=== PATIENT | male | born 1940 | race Caucasian/White ===

== ENCOUNTER 2020-12-06 13:56 | Inpatient (IN) ==
[2020-12-06] MEDS ORDERED: ALBUT/IPRATROP 3MG/0.5MG NEB 3 ML VIAL NEB STA (14:10)
[2020-12-06] MEDS ORDERED: ONDANSETRON INJ 2 MG/ML 2 ML VIAL IV STA ×3 (14:10→17:28)
[2020-12-06] MEDS ORDERED: SODIUM CHLORIDE 0.9% 1000ML 500 ML IV ONE ×3 (14:10→15:09)
[2020-12-06] MEDS ORDERED: PIPERACILLIN/TAZOBACTAM 4.5 GM/120 ML BAG IV ONE (14:11)
[2020-12-06] MEDS ORDERED: PIPERACILL/TAZOBAC CONSULT ACTIVE PRN (14:11)
[2020-12-06] MEDS ORDERED: ONDANSETRON INJ 2 MG/ML 2 ML VIAL ONE (14:12)
--- NOTE | 2020-12-06 14:17 | Emergency Department Note ---
Impression & Plan Altered mental status, Elevated lactic acid level, Vomiting, Aspiration into airway, Leukocytosis ED Provider Note NAME: LINDA CASTRO AGE: 80 SEX: M : 1940 ARRIVES VIA: Ambulance INFORMANT: [Patient][ems, nurse] ED PROVIDER(S): [Bear Monroy MD] CHIEF COMPLAINT: Altered LOC HISTORY OF PRESENT ILLNESS: The patient is a 80-year-old male who presents by EMS from the [facility] dermatology clinic. He was having a Mohs procedure on his face and left hand. Apparently, in the middle of the procedure, he vomited and there was concern for aspiration. Since this event, he has had an altered level of consciousness, some difficulty breathing and seems to be uncomfortable. His personal nurse is at the bedside stating the patient is a DNR. He is not to have a feeding tube, intubation or CPR. He does want antibiotics and fluids though if it can help. No further history is obtainable as the patient is in no condition to provide any history. Of note, EMS reports an adequate blood sugar. REVIEW OF SYSTEMS: Unobtainable given the mental state PMHx/PSHx: See Below SOCIAL HISTORY: See Below. PHYSICAL EXAM: GENERAL: Patient is in moderate distress HEENT: There is a large fresh bandage on the right side of the face. The patient's pupils are equal and reactive to light. Mucous members appear moist. NECK: No stridor, no adenopathy, no meningismus, trachea is midline. LUNGS: There is an increased respiratory rate and diminished breath sounds. Wheezes are heard bilaterally. He has some mild to moderate respiratory distress. HEART: Regular rate and rhythm, no obvious murmur. ABDOMEN: Soft, mildly diffusely tender and somewhat distended, bowel sounds positive, no peritonitis. EXTREMITIES: No cyanosis. 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 The left lower extremity is moderately edematous. NEUROLOGIC: Awakes to the sound of his name or tactile stimulation. Definitely somnolent. Confused. At times moans during the evaluation. SKIN: No rash, no jaundice, no diaphoresis. DIFFERENTIAL DIAGNOSIS: Infection, dehydration, metabolic abnormality, hypo/hyperglycemia, aspiration, sepsis or bacteremia, COVID-19, electrolyte disturbance, anemia, hypoxia, cardiac sources, intracerebral event, toxicologic issues, stroke, TIA, as well as other pathologies. EMERGENCY DEPARTMENT COURSE/PROCEDURES: ECG: Indication was altered mental state. The ECG shows an atrial pacemaker with a prolonged AV conduction. PVCs are present. The rate is 62. There are T wave inversions in the inferior and lateral leads. No worrisome ST elevation. The QTc is 452. Compared to an ECG from 22 January 2011, an atrial pacemaker is now present. The T wave changes are now present. Continuous Cardiac Monitoring: An order was placed for continuous cardiac monitoring. The monitor shows a rate of 74 with an atrial pacemaker. Critical Care Note: I have personally spent 56 minutes of critical care time in the direct management of this patient. This includes bedside care, interpretation of diagnostic studies, and testing, discussion with consultants, patient, and family members, and other required patient management activities. This 56 minutes is in excess of all separately billable procedures. MEDICAL DECISION MAKING: There is a significant leukocytosis at 29,000. This is consistent with infection. Hemoglobin was low however, the patient carries a history of anemia. There was a normal platelet count. No coagulopathy. Renal panel testing does show some acute kidney injury with a creatinine of 1.82. Glucose was high in the 300s. Lactic acid level was elevated at over 4. No liver enzyme elevation. ECG showed an atrial pacemaker, there were some inverted T waves seen in the inferior and lateral leads. No ST elevation. Cardiac enzyme testing x1 is not consistent with acute cardiac injury. Urinalysis did not show any obvious infection. Covid testing returned negative. Chest x-ray did not show pneumonia or CHF. Brain CT showed no acute bleed or mass-effect. A potential subacute infarct was queried. Abdominal and pelvis CT did not show any acute surgical process. There was no bowel obstruction. On exam, the patient was confused, he was wheezing. At times he was hypotensive. He required O2 supplementation to maintain an adequate oxygen level. The patient is a DNR. He is not to be intubated or have a feeding tube or undergo CPR. IV medications were acceptable. The patient had 2 IVs placed. He received 30 cc/kg of IV saline for potential sepsis. He was given IV Zosyn as antibiotic coverage. The patient received several doses of IV Zofran for nausea. He was given IV Ativan for nausea. He received IV Phenergan for nausea. He was given a DuoNeb. At 1 point, a norepinephrine drip was ordered however, this was canceled as his blood pressure seems a rebound with just the IV fluids. Patient did have an NG tube placed to try to offset his nausea and vomiting however, this did not help and as there was no bowel obstruction on CT, the NG tube was removed. The patient is doing poorly. I did talk to the form worker who was performing his Mohs procedure. A significant amount of lidocaine was used but, the patient did not have any reported seizure activity. In the middle of his procedure he suddenly seemed to be less awake and then began vomiting. In short, the patient may not survive this hospitalization. He is quite ill. I did attempt to contact family but no one was listed as a contact in his record. Nursing staff was able to confirm his DNR status. I did speak with case management, the on-call hospitalist was consulted. Past Med/Surg History Medical History Diabetes mellitus Social History Smoking Status: Unknown if ever smoked Preferred Language: Yemeni Communication Ability: Unable Communication Ability Comment: pt is confused and unable to provide history Senior Administrative Assistant Required: No Beliefs That Will Affect Care: None Current Living Situation: Other Current Living Situation Comment: unknown-pt confused unable to obtain information Feels Safe at Home: Yes Assistive Devices: Wheelchair Allergies Allergies Allergy/AdvReac Type Severity Reaction Status Date / Time No Known Allergies Allergy Mild Verified 12/06/20 14:34 Home Meds Home Medications Medication Instructions Recorded Confirmed loratadine 10 mg tablet 10 mg PO DAILY 12/15/19 12/06/20 methenamine hippurate 1 gram tablet 1 g PO BID 12/15/19 12/06/20 mirtazapine 7.5 mg tablet 7.5 mg HS 12/15/19 12/06/20 rivaroxaban 15 mg tablet (Xarelto) 15 mg PO PM 12/15/19 12/06/20 tamsulosin 0.4 mg capsule 0.4 mg PO BID 12/15/19 12/06/20 acetaminophen 325 mg tablet 650 mg PO Q6 PRN MDD 3g 12/06/20 12/06/20 amlodipine 10 mg tablet 10 mg PO DAILY 12/06/20 12/06/20 aspirin 81 mg chewable tablet 81 mg PO DAILY 12/06/20 12/06/20 cholecalciferol (vitamin D3) 25 50 mcg PO DAILY 12/06/20 12/06/20 mcg (1,000 unit) tablet (Vitamin D3) docusate sodium 100 mg capsule 200 mg PO BID 12/06/20 12/06/20 (Colace) finasteride 5 mg tablet 5 mg PO DAILY 12/06/20 12/06/20 gabapentin 100 mg capsule 100 mg PO TID 12/06/20 12/06/20 insulin glargine 100 unit/mL (3 58 unit SUBCUT HS 12/06/20 12/06/20 mL) subcutaneous pen (Basaglar KwikPen U-100 Insulin) lisinopril 5 mg tablet 5 mg PO DAILY 12/06/20 12/06/20 omeprazole 40 mg capsule,delayed 40 mg PO BID 12/06/20 12/06/20 release polyethylene glycol 3350 17 17 g PO Q OTHER DAY 12/06/20 12/06/20 gram/dose oral powder (ClearLax) sennosides 8.6 mg tablet (Senokot) 17.2 mg PO BID 12/06/20 12/06/20 simvastatin 20 mg tablet 20 mg PO HS 12/06/20 12/06/20 Results & Data (ED) Vital Signs Vital Signs - 24 hr 12/06/20 13:45 12/06/20 14:06 12/06/20 14:18 Temperature 36.6 C Temperature Source Oral Pulse Rate 64 63 Pulse Rate [Apical] 65 Pulse Rate from SpO2 Sensor 61 Pulse Rhythm Regular Pulse Rhythm [Apical] Regular Pulse Strength [Apical] Respiratory Rate 26 H 22 28 H Respiratory Effort / Characteristics Labored Moaning Short of Breath Moaning SOB on Exertion Respiratory Depth Respiratory Pattern Irregular Tachypnea Blood Pressure 108/46 L 100/50 L Blood Pressure [Right Arm] 121/55 L Blood Pressure Mean 66 66 Blood Pressure Mean [Right Arm] 77 Blood Pressure Position Sitting Blood Pressure Position [Right Arm] Sitting Pulse Oximetry 100 88 L 97 Oxygen Delivery Method Nasal Cannula Room Air Nasal Cannula Oxygen Flow Rate 5 4 Sepsis Recent Fever Within 48 Hours No Sepsis New/Unexplained Change in Mental Status No Sepsis Action Taken by Nursing No Action Required 12/06/20 14:47 12/06/20 15:03 12/06/20 15:15 Temperature Temperature Source Pulse Rate 62 66 Pulse Rate [Apical] Pulse Rate from SpO2 Sensor 62 66 Pulse Rhythm Pulse Rhythm [Apical] Pulse Strength [Apical] Respiratory Rate 20 16 16 Respiratory Effort / Characteristics Spontaneous Respiratory Depth Respiratory Pattern Blood Pressure 108/46 L 102/48 L Blood Pressure [Right Arm] Blood Pressure Mean 66 66 Blood Pressure Mean [Right Arm] Blood Pressure Position Blood Pressure Position [Right Arm] Pulse Oximetry 92 100 100 Oxygen Delivery Method Nasal Cannula Nasal Cannula Oxygen Flow Rate 6 3 Sepsis Recent Fever Within 48 Hours Sepsis New/Unexplained Change in Mental Status Sepsis Action Taken by Nursing 12/06/20 15:31 12/06/20 15:42 12/06/20 16:00 Temperature Temperature Source Pulse Rate 62 65 64 Pulse Rate [Apical] Pulse Rate from SpO2 Sensor 62 66 63 Pulse Rhythm Pulse Rhythm [Apical] Pulse Strength [Apical] Respiratory Rate 20 14 29 H Respiratory Effort / Characteristics Respiratory Depth Respiratory Pattern Blood Pressure 77/53 L 120/48 L 115/49 L Blood Pressure [Right Arm] Blood Pressure Mean 61 72 71 Blood Pressure Mean [Right Arm] Blood Pressure Position Blood Pressure Position [Right Arm] Pulse Oximetry 97 99 95 Oxygen Delivery Method Oxygen Flow Rate Sepsis Recent Fever Within 48 Hours Sepsis New/Unexplained Change in Mental Status Sepsis Action Taken by Nursing 12/06/20 16:11 12/06/20 16:18 Temperature Temperature Source Pulse Rate 60 Pulse Rate [Apical] 62 Pulse Rate from SpO2 Sensor 60 Pulse Rhythm Pulse Rhythm [Apical] Regular Pulse Strength [Apical] Weak Respiratory Rate 32 H 28 H Respiratory Effort / Characteristics Moaning Short of Breath Respiratory Depth Shallow Respiratory Pattern Blood Pressure 111/49 L Blood Pressure [Right Arm] 100/52 L Blood Pressure Mean 69 Blood Pressure Mean [Right Arm] 68 Blood Pressure Position Blood Pressure Position [Right Arm] Sitting Pulse Oximetry 93 100 Oxygen Delivery Method Nasal Cannula Oxygen Flow Rate Sepsis Recent Fever Within 48 Hours Sepsis New/Unexplained Change in Mental Status Sepsis Action Taken by Alf Medications Current Medication List: was personally reviewed by me Laboratory Data Attestation: I reviewed the patient's lab results. Result diagrams: 12/06/20 14:24 12/06/20 14:24 Lab Results 12/06/20 12/06/20 12/06/20 Range/Units 14:24 14:24 14:24 WBC 29.91 H (4.8-10.8) K/uL RBC 3.64 L (4.7-6.1) M/uL Hgb 9.9 L (14.0-18.0) g/dL Hct 29.9 L (42-52) % MCV 82.1 (80-100) fL MCH 27.2 (25-34) pg MCHC 33.1 (32-36) g/dL RDW Std Deviation 43.8 (36.4-46.3) fL RDW Coeff of Elizabeth 14.5 (11.5-14.5) % Plt Count 278 (130-400) K/uL MPV 9.3 (7.4-10.4) fL Immature Gran % (Auto) 1.6 % Neut % (Auto) 86.3 % Lymph % (Auto) 6.8 % [place] % (Auto) 4.4 % Eos % (Auto) 0.8 % Baso % (Auto) 0.1 % Neut # (Auto) 25.80 H (1.4-6.5) K/uL Lymph # (Auto) 2.03 (1.2-3.4) K/uL [place] # (Auto) 1.31 H (0.11-0.59) K/uL Eos # (Auto) 0.24 (0-0.5) K/uL Baso # (Auto) 0.04 (0-0.2) K/uL Immature Gran # (Auto) 0.49 H (0.00-0.02) K/uL PT 11.4 (9.0-12.0) Seconds INR 1.1 (0.9-1.1) APTT 24.8 (21.0-31.0) Seconds PTT Ratio 0.9 Sodium 138 (136-145) mmol/L Potassium 4.8 (3.5-5.1) mmol/L Chloride 108 H (98-107) mmol/L Carbon Dioxide 21 (21-32) mmol/L Anion Gap 9.0 (3-11) BUN 33 H (7-18) mg/dl Creatinine 1.82 H (0.6-1.4) mg/dl Est Cr Clr Drug Dosing Not Reportable Est GFR ( Amer) 40.3 ml/min Est GFR (Non-Af Amer) 34.8 ml/min BUN/Creatinine Ratio 18.1 (10-20) Glucose 347 H* (70-99) mg/dl POC Glucose (70-99) mg/dl Lactate (0.4-2.0) mmol/L Calcium 8.4 L (8.5-10.1) mg/dl Magnesium 1.8 (1.8-2.4) mg/dl Total Bilirubin 0.4 (0.2-1) mg/dl AST 20 (15-37) U/L ALT 30 (12-78) U/L Alkaline Phosphatase 94 (45-117) U/L Troponin I < 0.015 (0-0.045) ng/ml Total Protein 6.6 (6.4-8.2) gm/dl Albumin 2.8 L (3.4-5.0) gm/dl Globulin 3.8 (2.5-4.0) gm/dl Albumin/Globulin Ratio 0.7 L (0.9-2) Beta-Hydroxybutyric Acd 1.13 (0.2-2.81) mg/dl Procalcitonin (0-0.5) ng/ml TSH 6.350 H (0.300-4.500) uIu/ml Free T4 1.14 (0.8-1.6) ng/dl Random Cortisol mcg/dl Urine Color Urine Appearance (Clear) Urine pH (4.5-7.5) Ur Specific [place] (1.000-1.030) Urine Protein (Negative) Urine Glucose (UA) (Negative) Urine Ketones (Negative) Urine Blood (Negative) Urine Nitrite (Negative) Urine Bilirubin (Negative) Urine Urobilinogen (Negative) Ur Leukocyte Esterase (Negative) Urine WBC (Auto) (0-5) /hpf Urine RBC (Auto) (0-4) /hpf U Hyaline Cast (Auto) (0-5) /lpf U Epithel Cells (Auto) (0-5) /lpf Urine Bacteria (Auto) (Negative) COVID-19 Eval Order SARS-CoV-2 (PCR) (Negative) 12/06/20 12/06/20 12/06/20 Range/Units 14:24 14:27 14:27 WBC (4.8-10.8) K/uL RBC (4.7-6.1) M/uL Hgb (14.0-18.0) g/dL Hct (42-52) % MCV (80-100) fL MCH (25-34) pg MCHC (32-36) g/dL RDW Std Deviation (36.4-46.3) fL RDW Coeff of Elizabeth (11.5-14.5) % Plt Count (130-400) K/uL MPV (7.4-10.4) fL Immature Gran % (Auto) % Neut % (Auto) % Lymph % (Auto) % [place] % (Auto) % Eos % (Auto) % Baso % (Auto) % Neut # (Auto) (1.4-6.5) K/uL Lymph # (Auto) (1.2-3.4) K/uL [place] # (Auto) (0.11-0.59) K/uL Eos # (Auto) (0-0.5) K/uL Baso # (Auto) (0-0.2) K/uL Immature Gran # (Auto) (0.00-0.02) K/uL PT (9.0-12.0) Seconds INR (0.9-1.1) APTT (21.0-31.0) Seconds PTT Ratio Sodium (136-145) mmol/L Potassium (3.5-5.1) mmol/L Chloride (98-107) mmol/L Carbon Dioxide (21-32) mmol/L Anion Gap (3-11) BUN (7-18) mg/dl Creatinine (0.6-1.4) mg/dl Est Cr Clr Drug Dosing Est GFR ( Amer) ml/min Est GFR (Non-Af Amer) ml/min BUN/Creatinine Ratio (10-20) Glucose (70-99) mg/dl POC Glucose (70-99) mg/dl Lactate 4.9 H* (0.4-2.0) mmol/L Calcium (8.5-10.1) mg/dl Magnesium (1.8-2.4) mg/dl Total Bilirubin (0.2-1) mg/dl AST (15-37) U/L ALT (12-78) U/L Alkaline Phosphatase (45-117) U/L Troponin I (0-0.045) ng/ml Total Protein (6.4-8.2) gm/dl Albumin (3.4-5.0) gm/dl Globulin (2.5-4.0) gm/dl Albumin/Globulin Ratio (0.9-2) Beta-Hydroxybutyric Acd (0.2-2.81) mg/dl Procalcitonin < 0.05 (0-0.5) ng/ml TSH (0.300-4.500) uIu/ml Free T4 (0.8-1.6) ng/dl Random Cortisol 30.50 mcg/dl Urine Color Urine Appearance (Clear) Urine pH (4.5-7.5) Ur Specific [place] (1.000-1.030) Urine Protein (Negative) Urine Glucose (UA) (Negative) Urine Ketones (Negative) Urine Blood (Negative) Urine Nitrite (Negative) Urine Bilirubin (Negative) Urine Urobilinogen (Negative) Ur Leukocyte Esterase (Negative) Urine WBC (Auto) (0-5) /hpf Urine RBC (Auto) (0-4) /hpf U Hyaline Cast (Auto) (0-5) /lpf U Epithel Cells (Auto) (0-5) /lpf Urine Bacteria (Auto) (Negative) COVID-19 Eval Order SARS-CoV-2 (PCR) (Negative) 12/06/20 12/06/20 12/06/20 Range/Units 14:28 14:28 14:32 WBC (4.8-10.8) K/uL RBC (4.7-6.1) M/uL Hgb (14.0-18.0) g/dL Hct (42-52) % MCV (80-100) fL MCH (25-34) pg MCHC (32-36) g/dL RDW Std Deviation (36.4-46.3) fL RDW Coeff of Elizabeth (11.5-14.5) % Plt Count (130-400) K/uL MPV (7.4-10.4) fL Immature Gran % (Auto) % Neut % (Auto) % Lymph % (Auto) % [place] % (Auto) % Eos % (Auto) % Baso % (Auto) % Neut # (Auto) (1.4-6.5) K/uL Lymph # (Auto) (1.2-3.4) K/uL [place] # (Auto) (0.11-0.59) K/uL Eos # (Auto) (0-0.5) K/uL Baso # (Auto) (0-0.2) K/uL Immature Gran # (Auto) (0.00-0.02) K/uL PT (9.0-12.0) Seconds INR (0.9-1.1) APTT (21.0-31.0) Seconds PTT Ratio Sodium (136-145) mmol/L Potassium (3.5-5.1) mmol/L Chloride (98-107) mmol/L Carbon Dioxide (21-32) mmol/L Anion Gap (3-11) BUN (7-18) mg/dl Creatinine (0.6-1.4) mg/dl Est Cr Clr Drug Dosing Est GFR ( Amer) ml/min Est GFR (Non-Af Amer) ml/min BUN/Creatinine Ratio (10-20) Glucose (70-99) mg/dl POC Glucose 354 H* (70-99) mg/dl Lactate (0.4-2.0) mmol/L Calcium (8.5-10.1) mg/dl Magnesium (1.8-2.4) mg/dl Total Bilirubin (0.2-1) mg/dl AST (15-37) U/L ALT (12-78) U/L Alkaline Phosphatase (45-117) U/L Troponin I (0-0.045) ng/ml Total Protein (6.4-8.2) gm/dl Albumin (3.4-5.0) gm/dl Globulin (2.5-4.0) gm/dl Albumin/Globulin Ratio (0.9-2) Beta-Hydroxybutyric Acd (0.2-2.81) mg/dl Procalcitonin (0-0.5) ng/ml TSH (0.300-4.500) uIu/ml Free T4 (0.8-1.6) ng/dl Random Cortisol mcg/dl Urine Color Urine Appearance (Clear) Urine pH (4.5-7.5) Ur Specific [place] (1.000-1.030) Urine Protein (Negative) Urine Glucose (UA) (Negative) Urine Ketones (Negative) Urine Blood (Negative) Urine Nitrite (Negative) Urine Bilirubin (Negative) Urine Urobilinogen (Negative) Ur Leukocyte Esterase (Negative) Urine WBC (Auto) (0-5) /hpf Urine RBC (Auto) (0-4) /hpf U Hyaline Cast (Auto) (0-5) /lpf U Epithel Cells (Auto) (0-5) /lpf Urine Bacteria (Auto) (Negative) COVID-19 Eval Order Covid19 at [facility] SARS-CoV-2 (PCR) NEGATIVE (Negative) 12/06/20 12/06/20 Range/Units 15:13 17:41 WBC (4.8-10.8) K/uL RBC (4.7-6.1) M/uL Hgb (14.0-18.0) g/dL Hct (42-52) % MCV (80-100) fL MCH (25-34) pg MCHC (32-36) g/dL RDW Std Deviation (36.4-46.3) fL RDW Coeff of Elizabeth (11.5-14.5) % Plt Count (130-400) K/uL MPV (7.4-10.4) fL Immature Gran % (Auto) % Neut % (Auto) % Lymph % (Auto) % [place] % (Auto) % Eos % (Auto) % Baso % (Auto) % Neut # (Auto) (1.4-6.5) K/uL Lymph # (Auto) (1.2-3.4) K/uL [place] # (Auto) (0.11-0.59) K/uL Eos # (Auto) (0-0.5) K/uL Baso # (Auto) (0-0.2) K/uL Immature Gran # (Auto) (0.00-0.02) K/uL PT (9.0-12.0) Seconds INR (0.9-1.1) APTT (21.0-31.0) Seconds PTT Ratio Sodium (136-145) mmol/L Potassium (3.5-5.1) mmol/L Chloride (98-107) mmol/L Carbon Dioxide (21-32) mmol/L Anion Gap (3-11) BUN (7-18) mg/dl Creatinine (0.6-1.4) mg/dl Est Cr Clr Drug Dosing Est GFR ( Amer) ml/min Est GFR (Non-Af Amer) ml/min BUN/Creatinine Ratio (10-20) Glucose (70-99) mg/dl POC Glucose 324 H* (70-99) mg/dl Lactate (0.4-2.0) mmol/L Calcium (8.5-10.1) mg/dl Magnesium (1.8-2.4) mg/dl Total Bilirubin (0.2-1) mg/dl AST (15-37) U/L ALT (12-78) U/L Alkaline Phosphatase (45-117) U/L Troponin I (0-0.045) ng/ml Total Protein (6.4-8.2) gm/dl Albumin (3.4-5.0) gm/dl Globulin (2.5-4.0) gm/dl Albumin/Globulin Ratio (0.9-2) Beta-Hydroxybutyric Acd (0.2-2.81) mg/dl Procalcitonin (0-0.5) ng/ml TSH (0.300-4.500) uIu/ml Free T4 (0.8-1.6) ng/dl Random Cortisol mcg/dl Urine Color Yellow Urine Appearance Clear (Clear) Urine pH 6.5 (4.5-7.5) Ur Specific [place] 1.017 (1.000-1.030) Urine Protein Negative (Negative) Urine Glucose (UA) 2+ H (Negative) Urine Ketones Negative (Negative) Urine Blood Trace H (Negative) Urine Nitrite Negative (Negative) Urine Bilirubin Negative (Negative) Urine Urobilinogen Negative (Negative) Ur Leukocyte Esterase 1+ H (Negative) Urine WBC (Auto) 10-30 H (0-5) /hpf Urine RBC (Auto) 0-4 (0-4) /hpf U Hyaline Cast (Auto) 1-5 (0-5) /lpf U Epithel Cells (Auto) >30 H (0-5) /lpf Urine Bacteria (Auto) Negative (Negative) COVID-19 Eval Order SARS-CoV-2 (PCR) (Negative) Administered Medications Sodium Chloride (Nss 1000ml) 1,000 mls @ 100 mls/hr IV .Q10H JOSE ARMANDO Stop: 01/05/21 18:14 Last Admin: 12/06/20 21:04 Dose: 100 mls/hr Documented by: [id number] Sodium Chloride (Nss 1000ml) 1,000 mls @ 999 mls/hr IV .Q1H1M ONE Stop: 12/06/20 21:45 Last Admin: 12/06/20 21:03 Dose: 999 mls/hr Documented by: [id number] Discontinued Medications Albuterol (Albut/Ipratrop 3mg/0.5mg Neb 3 Ml Vial) 3 ml NEB NOW STA Stop: 12/06/20 14:11 Last Admin: 12/06/20 14:33 Dose: 3 ml Documented by: [id number] Sodium Chloride (Nss 1000ml) 500 mls @ 999 mls/hr IV .Q31M ONE Stop: 12/06/20 14:40 Last Infusion: 12/06/20 15:15 Dose: 0 mls/hr Documented by: [id number] Infusion: 12/06/20 15:14 Dose: 0 mls/hr Documented by: [id number] Admin: 12/06/20 14:19 Dose: 999 mls/hr Documented by: [id number] Piperacillin Sod/Tazobactam Sod (Zosyn) 4.5 gm in 120 mls @ 240 mls/hr IV NOW ONE Stop: 12/06/20 14:40 Last Infusion: 12/06/20 15:15 Dose: 0 mls/hr Documented by: [id number] Infusion: 12/06/20 15:00 Dose: 0 mls/hr Documented by: [id number] Admin: 12/06/20 14:37 Dose: 240 mls/hr Documented by: [id number] Sodium Chloride (Nss 1000ml) 500 mls @ 999 mls/hr IV .Q31M ONE Stop: 12/06/20 14:56 Last Infusion: 12/06/20 15:29 Dose: 0 mls/hr Documented by: [id number] Admin: 12/06/20 15:24 Dose: 999 mls/hr Documented by: [id number] Sodium Chloride (Nss 1000ml) 1,000 mls @ 999 mls/hr IV .Q1H1M ONE Stop: 12/06/20 16:06 Last Infusion: 12/06/20 15:15 Dose: 0 mls/hr Documented by: [id number] Admin: 12/06/20 15:14 Dose: 999 mls/hr Documented by: [id number] Sodium Chloride (Nss 1000ml) 500 mls @ 999 mls/hr IV .Q31M ONE Stop: 12/06/20 15:39 Last Infusion: 12/06/20 15:14 Dose: 0 mls/hr Documented by: [id number] Admin: 12/06/20 15:00 Dose: 999 mls/hr Documented by: [id number] Sodium Chloride (Nss) 250 mls @ 999 mls/hr IV .Q16M ONE Stop: 12/06/20 15:24 Last Infusion: 12/06/20 15:55 Dose: 0 mls/hr Documented by: [id number] Admin: 12/06/20 15:29 Dose: 999 mls/hr Documented by: [id number] Lorazepam (Ativan) 0.5 mg in 1 mls @ 1 mls/min IV NOW STA Stop: 12/06/20 15:16 Last Admin: 12/06/20 15:22 Dose: 1 mls/min Documented by: [id number] Norepinephrine Bitartrate (Levophed/D5w) 8 mg in 508 mls @ 32.309 mls/hr IV .[id number] [facility]; Protocol Stop: 01/05/21 15:44 Last Admin: 12/06/20 20:39 Dose: Not Given Documented by: [id number] Promethazine HCl (Phenergan) 6.25 mg in 50.25 mls @ 201 mls/hr IV NOW STA Stop: 12/06/20 16:01 Last Admin: 12/06/20 15:51 Dose: Not Given Documented by: [id number] Miscellaneous (Stat Iv Infusion Titration Per Protocol) 1 ea N/A NOW STA Stop: 12/06/20 15:35 Last Admin: 12/06/20 20:39 Dose: Not Given Documented by: [id number] Ondansetron HCl (Ondansetron Inj 2 Mg/Ml 2 Ml Vial) 4 mg IV NOW STA Stop: 12/06/20 14:11 Last Admin: 12/06/20 14:19 Dose: 4 mg Documented by: [id number] Ondansetron HCl (Ondansetron Inj 2 Mg/Ml 2 Ml Vial) Confirm Administered Dose 4 mg .ROUTE .STK-MED ONE Stop: 12/06/20 14:13 Last Admin: 12/06/20 14:20 Dose: Not Given Documented by: [id number] Ondansetron HCl (Ondansetron Inj 2 Mg/Ml 2 Ml Vial) 4 mg IV NOW STA Stop: 12/06/20 15:16 Last Admin: 12/06/20 15:22 Dose: 4 mg Documented by: [id number] Ondansetron HCl (Ondansetron Inj 2 Mg/Ml 2 Ml Vial) 4 mg IV NOW STA Stop: 12/06/20 17:29 Last Admin: 12/06/20 17:36 Dose: 4 mg Documented by: [id number] Promethazine HCl (Promethazine 6.25 Mg/50.25 Ml Nss) Confirm Administered Dose 6.25 mg IV .[employer] ONE Stop: 12/06/20 15:48 Last Admin: 12/06/20 15:50 Dose: 6.25 mg Documented by: [id number] Imaging Data Radiologist's Impression: Chest X-Ray 12/06/20 14:10 SINGLE VIEW CHEST CLINICAL HISTORY: Dyspnea. FINDINGS: An AP, portable, upright chest radiograph is compared to study dated 01/21/2011. The examination is mildly degraded by portable technique and patient rotation. A 2-lead cardiac pacemaker is unchanged in position. The heart is enlarged. The pulmonary vasculature is noncongested. Atelectasis is noted at the lung bases. No airspace consolidation or large pleural effusion is identified. No pneumothorax is seen. The skeletal structures are osteopenic. The bony thorax is grossly intact. IMPRESSION: 1. Cardiomegaly and cardiac pacemaker. There is no radiographic evidence of congestive failure. 2. No airspace consolidation or large pleural effusion is identified. ACT 112: Negative or not required by law. Electronically signed by: Bear Bella M.D. 12/06/2020 2:21 PM Abdomen/Pelvis CT 12/06/20 14:[address] WITHOUT CONTRAST CT DOSE: 1333.41 mGy.cm HISTORY: Acute hematemesis vomiting and bloated TECHNIQUE: Multiaxial CT images of the abdomen and pelvis were performed without contrast. A dose lowering technique was utilized adhering to the principles of ALARA. COMPARISON STUDY: None. FINDINGS: Study is limited secondary to patient positioning and lack of contrast. Mild cardiomegaly. Coronary artery calcifications. Partially imaged pacer leads. Trace pleural effusions with bibasilar groundglass and consolidative opacities. No pneumatosis or pneumoperitoneum. The unenhanced spleen, moderately atrophic pancreas and adrenal glands are unremarkable. Cholecystectomy. Mild marginal nodularity of the liver. Indeterminate 1.4 cm slightly hyper attenuating lesion of the hepatic dome on image 9 series 2. 3 mm calcification of the left kidney. Renal vascular calcifications are noted bilaterally. No hydronephrosis. Griffith catheter is noted within a decompressed urinary bladder. Air within the bladder lumen is likely secondary to instrumentation. Atherosclerosis of the aorta without aneurysm. No adenopathy. An enteric tube is present with distal tip terminating in the gastric body. Mild wall thickening of the distal esophagus. No bowel obstruction. Mild wall thickening of the rectum with moderate rectal fecal retention. The majority of the large bowel is decompressed. Normal appendix. Tiny fat filled periumbilical hernia. Unremarkable soft tissues. There is no acute fracture. Demineralized appearance of the bones. Degenerative changes of the spine, pelvis and hips. IMPRESSION: 1. No bowel obstruction. Normal appendix. 2. Marginal nodularity of the liver suggestive of cirrhosis. There is an indeterminate 1.4 cm slightly hyperattenuating lesion of the hepatic dome. This could be further characterized with a CT or MRI liver protocol. 3. 3 mm left renal calcification. No hydronephrosis. 4. Mild rectal wall thickening. Correlate with patient's symptoms to exclude a mild nonspecific proctitis. 5. Trace pleural effusions with bibasilar groundglass and consolidative opacities suspicious for an infectious or inflammatory pneumonitis. ACT 112: Negative or not required by law. The above report was generated using voice recognition software. It may contain grammatical, syntax or spelling errors. Electronically signed by: Judd Garcia M.D. 12/06/2020 5:[address] 12/06/20 14:11 CT OF THE HEAD WITHOUT CONTRAST CLINICAL HISTORY: Altered mental status. COMPARISON STUDY: Head CT December 31, 2010. CT DOSE: 1200.54 mGy.cm TECHNIQUE: Helical axial images of the head were obtained without IV contrast. Automated exposure control was utilized for the study. A dose lowering technique was utilized adhering to the principles of ALARA. FINDINGS: This exam is mildly compromised by motion artifact. No acute intracran ial hemorrhage, midline shift or mass effect is present. Extensive white matter hypodensity is similar to prior exam and favors small vessel disease. Ventricular dilatation is unchanged and due to atrophy. Basal cisterns are patent. There are no extra axial collections. There is an equivocal 2.4 cm hypodensity within the right frontal lobe on axial image 19 of 28. A large skin defect of the right face and right temporal scalp is noted. There is no fracture. Nasogastric tube is partially imaged. Moderate ethmoid sinus mucosal thickening is noted. There are postoperative findings within the sinuses. IMPRESSION: 1. No acute intracranial hemorrhage or mass effect. 2. 2.4 cm hypodensity within the right frontal lobe. This is likely artifactual however an acute infarct could appear similar. 3. Large skin defect of the right face and right temporal scalp. ACT 112: Negative or not required by law. Electronically signed by: Otilio Douglas M.D. 12/06/2020 5:09 PM Discharge Plan Visit Data Chief Complaint: Illness Stated Complaint: DECREASED LOC, VOMITING, PERIOD OF UNRESPONSIVE ED Provider: Bear Monroy Discharge Problem: Altered mental status, Elevated lactic acid level, Vomiting, Aspiration into airway, Leukocytosis Patient Disposition: Admitted As Inpatient Condition: Serious Discharge Instructions Interventions: ED Discharge Assessment Last Done: 12/06/20 20:35
--- NOTE | 2020-12-06 14:23 | XRay Report ---
SINGLE VIEW CHEST CLINICAL HISTORY: Dyspnea. FINDINGS: An AP, portable, upright chest radiograph is compared to study dated 01/21/2011. The examina tion is mildly degraded by portable technique and patient rotation. A 2-lead cardiac pacemaker is unc hanged in position. The heart is enlarged. The pulmonary vasculature is noncongested. Atelectasis is noted at the lung bases. No airspace consolidation or large pleural effusion is identified. No pneumo thorax is seen. The skeletal structures are osteopenic. The bony thorax is grossly intact. IMPRESSION: 1. Cardiomegaly and cardiac pacemaker. There is no radiographic evidence of congestive failure. 2. No airspace consolidation or large pleural effusion is identified. ACT 112: Negative or not required by law. Electronically signed by: Bear Bella M.D. 12/06/2020 2:21 PM
[2020-12-06 14:33] LABS: Hematocrit (blood only) 29.9 % (42-52); Hemoglobin 9.9 g/dL (14.0-18.0); Mean Corpuscular Hemoglobin 27.2 pg (25-34); Mean Corpuscular Hgb Conc 33.1 g/dL (32-36); Mean Corpuscular Volume 82.1 fL (80-100); Mean Platelet Volume 9.3 fL (7.4-10.4); Platelet Count 278 K/uL (130-400); RDW Coefficient of Variation 14.5 % (11.5-14.5); RDW Standard Deviation 43.8 fL (36.4-46.3); Red Blood Count 3.64 M/uL (4.7-6.1); White Blood Count 29.91 K/uL (4.8-10.8)
[2020-12-06 14:50] LABS: INR 1.1 (0.9-1.1); Partial Thromboplastin Ratio 0.9; Partial Thromboplastin Time 24.8 Seconds (21.0-31.0); Prothrombin Time 11.4 Seconds (9.0-12.0)
[2020-12-06 14:58] LABS: Basophils # (auto) 0.04 K/uL (0-0.2); Basophils % (auto) 0.1 %; Eosinophils # (auto) 0.24 K/uL (0-0.5); Eosinophils % (auto) 0.8 %; Immature Granulocytes # (auto) 0.49 K/uL (0.00-0.02); Immature Granulocytes % (auto) 1.6 %; Lymphocytes # (auto) 2.03 K/uL (1.2-3.4); Lymphocytes % (auto) 6.8 %; Monocytes # (auto) 1.31 K/uL (0.11-0.59); Monocytes % (auto) 4.4 %; Neutrophils % (auto) 86.3 %
[2020-12-06 15:05] LABS: Alanine Aminotransferase 30 U/L (12-78); Albumin Globulin Ratio 0.7 (0.9-2); Albumin Level 2.8 gm/dl (3.4-5.0); Alkaline Phosphatase 94 U/L (45-117); Aspartate Aminotransferase 20 U/L (15-37); BUN Creatinine Ratio 18.1 (10-20); Bilirubin,Total 0.4 mg/dl (0.2-1); Blood Urea Nitrogen 33 mg/dl (7-18); Calcium 8.4 mg/dl (8.5-10.1); Carbon Dioxide 21 mmol/L (21-32); Chloride 108 mmol/L (98-107); Est GFR (African American) 40.3 ml/min; Est GFR (Non-African American) 34.8 ml/min; Globulin 3.8 gm/dl (2.5-4.0); Glucose 347 mg/dl (70-99); Magnesium 1.8 mg/dl (1.8-2.4); Potassium 4.8 mmol/L (3.5-5.1); Sodium 138 mmol/L (136-145); Total Protein 6.6 gm/dl (6.4-8.2); Troponin I < 0.015 ng/ml (0-0.045)
[2020-12-06] MEDS ORDERED: SODIUM CHLORIDE 0.9% 1000ML 1,000 ML IV ONE ×2 (15:06→20:45)
[2020-12-06] MEDS ORDERED: SODIUM CHLORIDE 0.9% 250 ML IV ONE (15:09)
[2020-12-06] MEDS ORDERED: LORazepam 0.5 MG/1 ML VIAL IV STA (15:15)
[2020-12-06 15:21] LABS: Beta-Hydroxybutyrate 1.13 mg/dl (0.2-2.81); T4 Free Thyroxine 1.14 ng/dl (0.8-1.6)
[2020-12-06 15:24] LABS: Appearance Urine Clear (Clear); Bacteria Urine Automated Negative (Negative); Bilirubin Urine Negative (Negative); Blood Urine Trace (Negative); Color Urine Yellow; Epithelial Cell Urine Auto >30 /lpf (0-5); Glucose Urine UA 2+ (Negative); Ketones Urine Negative (Negative); Leukocyte Esterase Urine 1+ (Negative); Nitrite Urine Negative (Negative); Protein Urine Negative (Negative); RBC Urine Automated 0-4 /hpf (0-4); Specific Gravity Urine 1.017 (1.000-1.030); Urobilinogen Urine Negative (Negative); pH Urine 6.5 (4.5-7.5)
[2020-12-06] MEDS ORDERED: STAT IV Infusion **Titration per Protocol STA (15:34)
[2020-12-06] MEDS ORDERED: NOREPINEPHRINE/D5W 8 MG/508 ML BAG IV SCH (15:45)
[2020-12-06] MEDS ORDERED: PROMETHAZINE 6.25 MG/50.25 ML NSS IV ONE (15:47)
[2020-12-06] MEDS ORDERED: PROMETHAZINE 6.25 MG/50.25 ML BAG IV STA (15:47)
--- NOTE | 2020-12-06 17:10 | CT Scan Report ---
CT OF THE HEAD WITHOUT CONTRAST CLINICAL HISTORY: Altered mental status. COMPARISON STUDY: Head CT December 31, 2010. CT DOSE: 1200.54 mGy.cm TECHNIQUE: Helical axial images of the head were obtained without IV contrast. Automated exposure con trol was utilized for the study. A dose lowering technique was utilized adhering to the principles o f ALARA. FINDINGS: This exam is mildly compromised by motion artifact. No acute intracranial hemorrhage, midli ne shift or mass effect is present. Extensive white matter hypodensity is similar to prior exam and f avors small vessel disease. Ventricular dilatation is unchanged and due to atrophy. Basal cisterns ar e patent. There are no extra axial collections. There is an equivocal 2.4 cm hypodensity within the r ight frontal lobe on axial image 19 of 28. A large skin defect of the right face and right temporal s calp is noted. There is no fracture. Nasogastric tube is partially imaged. Moderate ethmoid sinus muc osal thickening is noted. There are postoperative findings within the sinuses. IMPRESSION: 1. No acute intracranial hemorrhage or mass effect. 2. 2.4 cm hypodensity within the right frontal lobe. This is likely artifactual however an acute infa rct could appear similar. 3. Large skin defect of the right face and right temporal scalp. ACT 112: Negative or not required by law. Electronically signed by: Otilio Douglas M.D. 12/06/2020 5:09 PM
--- NOTE | 2020-12-06 17:15 | CT Scan Report ---
ABDOMEN AND PELVIS CT WITHOUT CONTRAST CT DOSE: 1333.41 mGy.cm HISTORY: Acute hematemesis vomiting and bloated TECHNIQUE: Multiaxial CT images of the abdomen and pelvis were performed without contrast. A dose lo wering technique was utilized adhering to the principles of ALARA. COMPARISON STUDY: None. FINDINGS: Study is limited secondary to patient positioning and lack of contrast. Mild cardiomegaly. Coronary artery calcifications. Partially imaged pacer leads. Trace pleural effusions with bibasilar groundglass and consolidative opacities. No pneumatosis or pneumoperitoneum. The unenhanced spleen, m oderately atrophic pancreas and adrenal glands are unremarkable. Cholecystectomy. Mild marginal nodul arity of the liver. Indeterminate 1.4 cm slightly hyper attenuating lesion of the hepatic dome on shan ge 9 series 2. 3 mm calcification of the left kidney. Renal vascular calcifications are noted bilater ally. No hydronephrosis. Griffith catheter is noted within a decompressed urinary bladder. Air within th e bladder lumen is likely secondary to instrumentation. Atherosclerosis of the aorta without aneurysm . No adenopathy. An enteric tube is present with distal tip terminating in the gastric body. Mild wall thickening of t he distal esophagus. No bowel obstruction. Mild wall thickening of the rectum with moderate rectal fe christina retention. The majority of the large bowel is decompressed. Normal appendix. Tiny fat filled myesha umbilical hernia. Unremarkable soft tissues. There is no acute fracture. Demineralized appearance of the bones. Degenerative changes of the spine, pelvis and hips. IMPRESSION: 1. No bowel obstruction. Normal appendix. 2. Marginal nodularity of the liver suggestive of cirrhosis. There is an indeterminate 1.4 cm slightl y hyperattenuating lesion of the hepatic dome. This could be further characterized with a CT or MRI l iver protocol. 3. 3 mm left renal calcification. No hydronephrosis. 4. Mild rectal wall thickening. Correlate with patient's symptoms to exclude a mild nonspecific proct itis. 5. Trace pleural effusions with bibasilar groundglass and consolidative opacities suspicious for an i nfectious or inflammatory pneumonitis. ACT 112: Negative or not required by law. The above report was generated using voice recognition software. It may contain grammatical, syntax o r spelling errors. Electronically signed by: uJdd Garcia M.D. 12/06/2020 5:14 PM
--- NOTE | 2020-12-06 18:04 | History & Physical Report ---
Date of Service December 06, 2020 Assessment & Plan (1) Altered mental status: (2) Acute metabolic encephalopathy: (3) Aspiration into airway: (4) Vomiting: (5) Elevated lactic acid level: (6) Sepsis: Plan: Based on history provided by ER physician with report of vomiting episodes during dermatological procedure, onset of altered mental status afterwards; patient likely aspirated into the airway. Patient met SIRS criteria with leukocytosis, tachypnea, elevated lactate, initial hypotension, acute kidney injury. Hence, severe sepsis likely secondary to aspiration mental airway. Chest x-ray did not show any obvious opacities however CT abdomen pelvis does show trace pleural effusion with bibasilar groundglass and consolidative opacities. Patient altered mental status is likely acute metabolic encephalopathy likely to due to sepsis. CT head did not show any acute intracranial hemorrhage or mass-effect but reported equivocal 2.4 cm hypodensity within the right frontal lobe. No prior to compare. Based on presentation, history, available lab work, higher suspicion for septic process and less likely any CVA. Patient also moves extremities. Got 30 cc/kg IV fluids in ER. Repeat lactate and monitor Continue Zosyn for now Strict n.p.o. for now until mental status improves Continue IV fluids Critical care consult. Discussed patient with ICU PA who will evaluate with Dr Celaya. Patient may need pressors if decompensates EKG did show T wave inversions in inferolateral leads. Review of past EKG from 2014 confirmed that this is not new. Troponin was negative. We will check 1 more time. Old Echo from 2008 reviewed on [facility] Patient is DNR per [employer]. store group manager consult to help finding POA/family contact/decision maker (7) Acute renal failure superimposed on chronic kidney disease: Plan: Creatinine is 1.84 (from a baseline of 1.4] Continue IV fluids and monitor Avoid nephrotoxins (8) Diabetes mellitus: Plan: Pharmacy consult for glycemic management Lantus 20 at bedtime for now Insulin every 6 hours while n.p.o. (9) DVT prophylaxis: Plan: Heparin subcu for DVT prophylaxis Plan: Plan to call ged tutor tomorrow to get more information as it is too late now History of Present Illness Chief Complaint: Altered mental status Primary Care Provider: NO PCP 80-year-old man with history of DM type II, proximal A. fib, hypertension, liver cirrhosis, rosacea, major depressive disorder, pacemaker in situ who was brought in from dermatology procedure for altered mental status. Patient is currently altered and not able to provide any history. Was able to tell me his name only History obtained from ER physician Who had spoken to patient's ged tutor and home nurse. Patient was apparently at his baseline functional/mental status earlier today prior to going to his ged tutor at [facility] dermatology clinic to have the Mohs procedure on his face and left hand. Patient was reported to have vomited in the middle of the procedure and then developed altered mental status with difficulty breathing. Patient was brought to the ER with his home nurse at bedside. At the time of my evaluation, home nurse was not available but according to the ER had reported that patient was DNR and would not want feeding tube, intubation or CPR but okay with antibiotics IV medication and fluids. Patient's polst form was also evaluated in the ER which confirmed that patient is DNR No other history could be obtained from the patient who is currently drowsy. Allergies Allergy/AdvReac Type Severity Reaction Status Date / Time No Known Allergies Allergy Mild Verified 12/06/20 14:34 Home Medications Medication Instructions Recorded Confirmed Type loratadine 10 mg tablet 10 mg PO DAILY 12/15/19 12/06/20 History methenamine hippurate 1 gram tablet 1 g PO BID 12/15/19 12/06/20 History mirtazapine 7.5 mg tablet 7.5 mg HS 12/15/19 12/06/20 History rivaroxaban 15 mg tablet (Xarelto) 15 mg PO PM 12/15/19 12/06/20 History tamsulosin 0.4 mg capsule 0.4 mg PO BID 12/15/19 12/06/20 History acetaminophen 325 mg tablet 650 mg PO Q6 PRN MDD 3g 12/06/20 12/06/20 History amlodipine 10 mg tablet 10 mg PO DAILY 12/06/20 12/06/20 History aspirin 81 mg chewable tablet 81 mg PO DAILY 12/06/20 12/06/20 History cholecalciferol (vitamin D3) 25 50 mcg PO DAILY 12/06/20 12/06/20 History mcg (1,000 unit) tablet (Vitamin D3) docusate sodium 100 mg capsule 200 mg PO BID 12/06/20 12/06/20 History (Colace) finasteride 5 mg tablet 5 mg PO DAILY 12/06/20 12/06/20 History gabapentin 100 mg capsule 100 mg PO TID 12/06/20 12/06/20 History insulin glargine 100 unit/mL (3 58 unit SUBCUT HS 12/06/20 12/06/20 History mL) subcutaneous pen (Basaglar KwikPen U-100 Insulin) lisinopril 5 mg tablet 5 mg PO DAILY 12/06/20 12/06/20 History omeprazole 40 mg capsule,delayed 40 mg PO BID 12/06/20 12/06/20 History release polyethylene glycol 3350 17 17 g PO Q OTHER DAY 12/06/20 12/06/20 History gram/dose oral powder (ClearLax) sennosides 8.6 mg tablet (Senokot) 17.2 mg PO BID 12/06/20 12/06/20 History simvastatin 20 mg tablet 20 mg PO HS 12/06/20 12/06/20 History Past Med/Surg History Social History Smoking Status: Never smoker Hx Alcohol Use: No Hx Substance Use: No Preferred Language: Macedonian Communication Ability: Effective Churn Driller Required: No Beliefs That Will Affect Care: None Current Living Situation: Residential Feels Safe at Home: Yes Assistive Devices: Wheelchair Review of Systems Review of Systems: Unobtainable due to reduced consciousness Physical Exam Constitutional: + acute distress (tachypneic) and + altered mental status Patient has Band-Aid over right side of head and eye (ged tutor procedure was reportedly interrupted and patient transported to the ER] Eyes: Left eye _ PERRL Right eye could not be fully examined due to bandage ENMT: external ear and nose normal, oropharynx normal Respiratory: + respiratory distress (Tachypneic) On facemask Coarse breath sounds bilaterally and transmitted sounds Cardiovascular: Rate/Rhythm: regular rate and regular rhythm S1-S2 Left lower extremity pitting edema Gastrointestinal (Abdomen): normal bowel sounds, soft, nontender, no hepatosplenomegaly Musculoskeletal: 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 Was able to tell me his name but otherwise unable to answer any other questions. Does not follow simple commands. Limited neurological exam evaluation due to mental status. Moves extremities Results & Data Results & Data ([facility]) Vital Signs (Past 12 Hours) Vital Signs Temp Pulse Pulse Resp BP BP Pulse Ox 12/06/20 16:18 62 28 H 100/52 L 100 12/06/20 16:11 60 32 H 111/49 L 93 12/06/20 16:00 64 29 H 115/49 L 95 12/06/20 15:42 65 14 120/48 L 99 12/06/20 15:31 62 20 77/53 L 97 12/06/20 15:15 66 16 102/48 L 100 12/06/20 15:03 62 16 108/46 L 100 12/06/20 14:47 20 92 12/06/20 14:18 65 28 H 121/55 L 97 12/06/20 14:06 63 22 100/50 L 88 L 12/06/20 13:45 36.6 C 64 26 H 108/46 L 100 Laboratory Results Abnormal lab results 12/06/20 12/06/20 12/06/20 Range/Units 14:24 14:24 14:24 WBC 29.91 H (4.8-10.8) K/uL RBC 3.64 L (4.7-6.1) M/uL Hgb 9.9 L (14.0-18.0) g/dL Hct 29.9 L (42-52) % Neut # (Auto) 25.80 H (1.4-6.5) K/uL Hendry # (Auto) 1.31 H (0.11-0.59) K/uL Immature Gran # (Auto) 0.49 H (0.00-0.02) K/uL Chloride 108 H (98-107) mmol/L BUN 33 H (7-18) mg/dl Creatinine 1.82 H (0.6-1.4) mg/dl Glucose 347 H* (70-99) mg/dl POC Glucose (70-99) mg/dl Lactate 4.9 H* (0.4-2.0) mmol/L Calcium 8.4 L (8.5-10.1) mg/dl Albumin 2.8 L (3.4-5.0) gm/dl Albumin/Globulin Ratio 0.7 L (0.9-2) TSH 6.350 H (0.300-4.500) uIu/ml Urine Glucose (UA) (Negative) Urine Blood (Negative) Ur Leukocyte Esterase (Negative) Urine WBC (Auto) (0-5) /hpf U Epithel Cells (Auto) (0-5) /lpf 12/06/20 12/06/20 12/06/20 Range/Units 14:32 15:13 17:41 WBC (4.8-10.8) K/uL RBC (4.7-6.1) M/uL Hgb (14.0-18.0) g/dL Hct (42-52) % Neut # (Auto) (1.4-6.5) K/uL Hendry # (Auto) (0.11-0.59) K/uL Immature Gran # (Auto) (0.00-0.02) K/uL Chloride (98-107) mmol/L BUN (7-18) mg/dl Creatinine (0.6-1.4) mg/dl Glucose (70-99) mg/dl POC Glucose 354 H* 324 H* (70-99) mg/dl Lactate (0.4-2.0) mmol/L Calcium (8.5-10.1) mg/dl Albumin (3.4-5.0) gm/dl Albumin/Globulin Ratio (0.9-2) TSH (0.300-4.500) uIu/ml Urine Glucose (UA) 2+ H (Negative) Urine Blood Trace H (Negative) Ur Leukocyte Esterase 1+ H (Negative) Urine WBC (Auto) 10-30 H (0-5) /hpf U Epithel Cells (Auto) >30 H (0-5) /lpf Diagnostic Findings ABDOMEN AND PELVIS CT WITHOUT CONTRAST CT DOSE: 1333.41 mGy.cm HISTORY: Acute hematemesis vomiting and bloated TECHNIQUE: Multiaxial CT images of the abdomen and pelvis were performed without contrast. A dose lowering technique was utilized adhering to the principles of ALARA. COMPARISON STUDY: None. FINDINGS: Study is limited secondary to patient positioning and lack of contrast. Mild cardiomegaly. Coronary artery calcifications. Partially imaged pacer leads. Trace pleural effusions with bibasilar groundglass and consolidative opacities. No pneumatosis or pneumoperitoneum. The unenhanced spleen, moderately atrophic pancreas and adrenal glands are unremarkable. Cholecystectomy. Mild marginal nodularity of the liver. Indeterminate 1.4 cm slightly hyper attenuating lesion of the hepatic dome on image 9 series 2. 3 mm calcification of the left kidney. Renal vascular calcifications are noted bilaterally. No hydronephrosis. Griffith catheter is noted within a decompressed urinary bladder. Air within the bladder lumen is likely secondary to instrumentation. Atherosclerosis of the aorta without aneurysm. No adenopathy. An enteric tube is present with distal tip terminating in the gastric body. Mild wall thickening of the distal esophagus. No bowel obstruction. Mild wall thickening of the rectum with moderate rectal fecal retention. The majority of the large bowel is decompressed. Normal appendix. Tiny fat filled periumbilical hernia. Unremarkable soft tissues. There is no acute fracture. Demineralized appearance of the bones. Degenerative changes of the spine, pelvis and hips. IMPRESSION: 1. No bowel obstruction. Normal appendix. 2. Marginal nodularity of the liver suggestive of cirrhosis. There is an indeterminate 1.4 cm slightly hyperattenuating lesion of the hepatic dome. This could be further characterized with a CT or MRI liver protocol. 3. 3 mm left renal calcification. No hydronephrosis. 4. Mild rectal wall thickening. Correlate with patient's symptoms to exclude a mild nonspecific proctitis. 5. Trace pleural effusions with bibasilar groundglass and consolidative opacities suspicious for an infectious or inflammatory pneumonitis. CT OF THE HEAD WITHOUT CONTRAST CLINICAL HISTORY: Altered mental status. COMPARISON STUDY: Head CT December 31, 2010. CT DOSE: 1200.54 mGy.cm TECHNIQUE: Helical axial images of the head were obtained without IV contrast. Automated exposure control was utilized for the study. A dose lowering technique was utilized adhering to the principles of ALARA. FINDINGS: This exam is mildly compromised by motion artifact. No acute intracranial hemorrhage, midline shift or mass effect is present. Extensive white matter hypodensity is similar to prior exam and favors small vessel disease. Ventricular dilatation is unchanged and due to atrophy. Basal cisterns are patent. There are no extra axial collections. There is an equivocal 2.4 cm hypodensity within the right frontal lobe on axial image 19 of 28. A large skin defect of the right face and right temporal scalp is noted. There is no fracture. Nasogastric tube is partially imaged. Moderate ethmoid sinus mucosal thickening is noted. There are postoperative findings within the sinuses. IMPRESSION: 1. No acute intracranial hemorrhage or mass effect. 2. 2.4 cm hypodensity within the right frontal lobe. This is likely artifactual however an acute infarct could appear similar. 3. Large skin defect of the right face and right temporal scalp. Code Status & VTE Plan Code Status DNR
[2020-12-06] MEDS ORDERED: PHARMACY GLYCEMIC MGMT CONSULT STA (18:08)
--- NOTE | 2020-12-06 20:27 | Critical Care Consultation ---
Date of Consultation December 06, 2020 Assessment & Plan (1) Sepsis: Impression: 80-year-old male admitted for sepsis following aspiration event at a dermatology appointment earlier this afternoon. Patient reportedly vomited and became hypoxic and confused. He is undergoing treatment for sepsis from pulmonary source and currently on 7 L oxygen mask. Patient mated to PCU and ICU team consulted as patient is high risk for decompensating. Neuro - Acute metabolic encephalopathylikely in the setting of sepsis/hypoxia following aspiration event -CT head without acute intracranial findings. Did demonstrate 2.4 cm hypodensity within the right frontal lobe but thought to be artifactual. Large skin defect of the right face and right temporal scalp -BUN 33, LFTs within normal limits. Follow-up ammonia -Monitor Cardiac - Hypotensionimproved following fluid resuscitation. Likely secondary to sepsis -No need for vasopressors at this time. If patient were to decompensate may transfer to ICU for use of vasopressors -Random cortisol 30, no indication for stress dose steroids at this time -Troponin negative -Follow-up echo -Hold antihypertensives -Continuous monitoring on telemetry Proximal A. fibon Xarelto. No issue at this time as patient is currently NSR -Consider transition to IV heparin tomorrow -Monitor on telemetry Respiratory - Pneumonia/aspiration pneumonitisfollowing vomiting event that dermatology appointment. Patient became increasingly hypoxic and confused -Maintain oxygen saturations on oxygen mask at this time and no respiratory distress -CT abdomen pelvis showed bibasilar consolidations of the lungs. Chest x-ray unremarkable -Currently on broad-spectrum antibiotics -We will obtain ABG -Continuous monitoring on pulse ox GI - CT abdomen pelvis without acute intracranial findings. Patient does have cirrhosis and RENAL/LYTES - AKIcreatinine 1.82, no prior study to compare -Likely ATN in the setting of hypotension -CT abdomen pelvis showed 3 mm calculi without evidence of hydronephrosis or obstruction -Monitor routine BMPs -Continue IV fluid fluid resuscitation -Renally adjust meds and avoid nephrotoxins -Monitor Lactic acidosislikely elevated in the setting of sepsis, however cirrhosis likely playing a role -Continue to trend. No indication for bicarb drip at this time -Continue with fluid resuscitation -Monitor TSH elevated with normal T4 level - Foleystrict I's and O's ENDO - DM type IIcurrently hyperglycemic but his beta hydroxybutyric acid within normal limits -Insulin drip protocol HEME - H&H stable, monitor routine CBCs ID - Sepsislikely pulmonary source in the setting of aspiration -CT abdomen pelvis without acute intra-abdominal finding, but did show bibasilar consolidations of the lung -Procalcitonin within normal limits, lactate elevated, afebrile -Nasal MRSA positive -COVID-19 negative -Continue with broad-spectrum antibiotics vancomycin and Zosyn LINES/IV ACCESS - Peripheral IVs DVT PROPHYLAXIS - SCDs, patient on Xarelto. Consider transition to IV heparin tomorrow CODE STATUS DNR/DNI Disposition: At this time patient is stable for PCU. If patient were to decompensate from a pulmonary or hemodynamic standpoint, can certainly transfer to ICU for further management. Please feel free to contact us if any further assistance is needed. Thank you for allowing us to participate in the care of this patient. Please refer to my attending physician's documentation for any further recommendations. (2) Altered mental status: (3) Elevated lactic acid level: (4) Vomiting: (5) Leukocytosis: (6) Aspiration into airway: (7) Diabetes mellitus: (8) DVT prophylaxis: (9) KATEY (acute kidney injury): (10) Pneumonia: (11) Aspiration pneumonitis: History of Present Illness History of Present Illness Patient is a 80-year-old male with past medical history of uncontrolled DM type II, right AKA, left foot amputation, proximal A. fib (on Xarelto), HTN, liver cirrhosis, rosacea, major depressive disorder, pacemaker. He resides in a [facility]. Patient was undergoing Mohs procedure at the [facility] attendant [facility] at [facility] dermatology on his face and hand earlier today. Patient was reported to have vomited in the middle the procedure and developed altered mental status and difficulty breathing. He was transferred to the ER where he was found to be hypoxic, hypotensive. Patient is DNR/DNI but was okay with medical management including vasopressors. CT abdomen pelvis unremarkable for acute intra-abdominal process. Chest x-ray was unremarkable but CT abdomen pelvis did reveal trace pleural effusions with bibasilar groundglass and consolidative opacities suspicious for infection versus inflammatory pneumonitis. Patient was initially hypotensive with blood pressure did improve following fluid bolus, however his lactate continues to trend upward. At this time the patient is not requiring vasopressor support but is high risk of decompensating. He is currently maintaining oxygen saturation on oxygen mask and hemodynamically stable. He is undergoing treatment for sepsis at this time. He is currently admitted to PCU but okay to transfer to ICU if patient were to decompensate. On evaluation the patient is confused but able to answer simple questions. He currently denies headache, dizziness, sore throat, fever, shortness of breath, cough, chest pain, palpitations, abdominal pain, nausea or vomiting. Allergies Allergy/AdvReac Type Severity Reaction Status Date / Time No Known Allergies Allergy Mild Verified 12/06/20 14:34 Home Medications Medication Instructions Recorded Confirmed Type loratadine 10 mg tablet 10 mg PO DAILY 12/15/19 12/06/20 History methenamine hippurate 1 gram tablet 1 g PO BID 12/15/19 12/06/20 History mirtazapine 7.5 mg tablet 7.5 mg HS 12/15/19 12/06/20 History rivaroxaban 15 mg tablet (Xarelto) 15 mg PO PM 12/15/19 12/06/20 History tamsulosin 0.4 mg capsule 0.4 mg PO BID 12/15/19 12/06/20 History acetaminophen 325 mg tablet 650 mg PO Q6 PRN MDD 3g 12/06/20 12/06/20 History amlodipine 10 mg tablet 10 mg PO DAILY 12/06/20 12/06/20 History aspirin 81 mg chewable tablet 81 mg PO DAILY 12/06/20 12/06/20 History cholecalciferol (vitamin D3) 25 50 mcg PO DAILY 12/06/20 12/06/20 History mcg (1,000 unit) tablet (Vitamin D3) docusate sodium 100 mg capsule 200 mg PO BID 12/06/20 12/06/20 History (Colace) finasteride 5 mg tablet 5 mg PO DAILY 12/06/20 12/06/20 History gabapentin 100 mg capsule 100 mg PO TID 12/06/20 12/06/20 History insulin glargine 100 unit/mL (3 58 unit SUBCUT HS 12/06/20 12/06/20 History mL) subcutaneous pen (Basaglar KwikPen U-100 Insulin) lisinopril 5 mg tablet 5 mg PO DAILY 12/06/20 12/06/20 History omeprazole 40 mg capsule,delayed 40 mg PO BID 12/06/20 12/06/20 History release polyethylene glycol 3350 17 17 g PO Q OTHER DAY 12/06/20 12/06/20 History gram/dose oral powder (ClearLax) sennosides 8.6 mg tablet (Senokot) 17.2 mg PO BID 12/06/20 12/06/20 History simvastatin 20 mg tablet 20 mg PO HS 12/06/20 12/06/20 History Patient History Medical History Diabetes mellitus Social History Smoking Status: Unknown if ever smoked Preferred Language: Bhutanese Communication Ability: Unable Communication Ability Comment: pt is confused and unable to provide history Heat Treating Operator Required: No Beliefs That Will Affect Care: None Current Living Situation: Other Current Living Situation Comment: unknown-pt confused unable to obtain information Feels Safe at Home: Yes Assistive Devices: Oxygen - Continuous Review of Systems Review of Systems: All systems reviewed & are unremarkable except as noted in HPI & below Physical Exam Constitutional: + altered mental status and cooperative Eyes: PERRL, conjunctivae normal, anicteric sclerae ENMT: external ear and nose normal, oropharynx normal Neck: trachea midline, no thyromegaly Respiratory: Lungs coarse with bibasilar crackles with auscultation, symmetrical chest wall movement. Mild tachypnea. Nonlabored breathing. Cardiovascular: RRR, no murmur, no edema Rate/Rhythm: regular rate and regular rhythm Heart Sounds: normal S1 and normal S2 Gastrointestinal (Abdomen): normal bowel sounds, soft, nontender, no hepatosplenomegaly Musculoskeletal: AKA right lower extremity. Partial foot amputation to the left lower extremity. Skin: no rashes, warm and dry Neurologic: Alert to self. Confused. Symmetrical movement of extremities. Able to follow commands. PERRLA Genitourinary: Indwelling Griffith catheter present Results & Data Results & Data ([facility]) Vital Signs (Past 12 Hours) Vital Signs Temp Pulse Pulse Resp BP BP Pulse Ox 12/06/20 19:00 78 24 97/68 L 96 12/06/20 16:18 62 28 H 100/52 L 100 12/06/20 16:11 60 32 H 111/49 L 93 12/06/20 16:00 64 29 H 115/49 L 95 12/06/20 15:42 65 14 120/48 L 99 12/06/20 15:31 62 20 77/53 L 97 12/06/20 15:15 66 16 102/48 L 100 12/06/20 15:03 62 16 108/46 L 100 12/06/20 14:47 20 92 12/06/20 14:18 65 28 H 121/55 L 97 12/06/20 14:06 63 22 100/50 L 88 L 12/06/20 13:45 36.6 C 64 26 H 108/46 L 100 Coding Level of Care Code 53694 Inpt Consult Level 3 Diagnoses Altered mental status R41.0 Altered mental status type: disorientation Elevated lactic acid level R79.89 Vomiting R11.2 Nausea presence: with nausea Vomiting Intractability: intractable Vomiting type: unspecified Leukocytosis D72.829 Leukocytosis type: unspecified Aspiration into airway T17.908A Diabetes mellitus E11.9 DVT prophylaxis Z29.9 Sepsis A41.9 KATEY (acute kidney injury) N17.9 Pneumonia J18.9 Aspiration pneumonitis J69.0 (1) Altered mental status Altered mental status type: disorientation Qualified Code(s): R41.0 - Disorientation, unspecified (2) Vomiting Nausea presence: with nausea Vomiting Intractability: intractable Vomiting type: unspecified Qualified Code(s): R11.2 - Nausea with vomiting, unspecified (3) Leukocytosis Leukocytosis type: unspecified Qualified Code(s): D72.829 - Elevated white blood cell count, unspecified
[2020-12-06] MEDS ORDERED: GLUCOSE 40% GEL 15 GM TUBE PO PRN (20:45)
[2020-12-06] MEDS ORDERED: GLUCOSE 10 TABS/TUBE PO PRN (20:45)
[2020-12-06] MEDS ORDERED: CARBOHYDRATES FOR HYPOGLYCEMIA PO PRN (20:45)
[2020-12-06] MEDS ORDERED: DEXTROSE 50% 50 ML SYRINGE IV PRN (20:45)
[2020-12-06] MEDS ORDERED: GLUCAGON FOR INJ 1 MG VIAL SQ PRN (20:45)
[2020-12-06] MEDS ORDERED: PHARMACY GLYCEMIC MGMT CONSULT PRN (20:53)
[2020-12-06] MEDS ORDERED: PATIENT'S HEIGHT AND/OR WEIGHT NEEDED SCH (21:00)
[2020-12-06] MEDS: SODIUM CHLORIDE 0.9% 1000ML 1,000 ML IV SCH (21:04)
[2020-12-06] MEDS ORDERED: PNEUMOCOCCAL POLYSACCHARIDES 25 MCG/0.5 ML VIAL/SYR IM ONE (21:05)
[2020-12-06] MEDS ORDERED: INSULIN GLARGINE SOLOSTAR 100 UNITS/ML 3 ML PEN SQ SCH (21:15)
[2020-12-06] MEDS ORDERED: INSULIN HUMAN REGULAR PER UNIT 6 UNITS in SYRINGE 5.94 ML IV ONE (21:15)
[2020-12-06] MEDS ORDERED: VANCOMYCIN CONSULT ACTIVE PRN (21:23)
[2020-12-06] MEDS ORDERED: VANCOMYCIN HCL 1,000 MG in SODIUM CHLORIDE 0.9% 250 ML IV SCH (21:30)
[2020-12-06] MEDS ORDERED: VANCOMYCIN HCL 1,500 MG in SODIUM CHLORIDE 0.9% 500 ML IV STA (21:37)
[2020-12-06] MEDS: PIPERACILLIN/TAZOBACTAM 3.375 GM in DEXTROSE 5% 100 ML IV SCH (21:47)
[2020-12-06] MEDS: HEPARIN SOD 5,000 UNIT/0.5 ML VIAL SQ SCH (21:47)
[2020-12-06] MEDS: INSULIN ASPART 100 UNITS/ML 3 ML PEN SC SCH (21:50)
[2020-12-06 23:43] LABS: Allen Test Pos (Pos); Base Excess ABG -7.9 mEq/L (-9-1.8); HCO3 ABG 17 mmol/L (19-24); Oxygen Saturation ABG 93.7 % (90-95); PCO2 ABG 34 mmHg (35-46); PO2 ABG 74 mmHg (80-95); pH ABG 7.32 (7.35-7.45)
[2020-12-07] MEDS: INSULIN ASPART 100 UNITS/ML 3 ML PEN SC SCH ×5 (00:24→18:20)
--- NOTE | 2020-12-07 00:50 | Pharmacy Report ---
Pharmacy Glycemic Short Note 2 - Date of Service December 07, 2020 - Glycemic Short BSG Results (Last 24 hours): 12/06/20 12/06/20 12/06/20 14:24 14:32 17:41 Glucose 347 H* POC Glucose 354 H* 324 H* 12/06/20 12/07/20 21:02 00:07 Glucose POC Glucose 281 H 235 H OUTPATIENT ANTIDIABETIC REGIMEN: * Basaglar 58 units SC HS * HbA1c ordered for 12/07/20 ASSESSMENT: * RW is a 80 year old male presented on 12/06 with altered mental status/hypoxia following aspiration event * Currently NPO and ordered Zosyn to cover possible aspiration pneumonia * BSGs elevated in ED, 347 mg/dL on presentation * BSG improved mildly to 281 mg/dL at time of transfer to floor with no insulin administered * Will hold off on IV insulin bolus * Given NPO status - will give ~70% of basal and use q4h Novolog checks for now PLAN FOR INPATIENT GLYCEMIC CONTROL: * Basal insulin * Lantus 40 units SC x 1 this evening (~70% of home dose) * Bolus insulin * NovoLog per scale q4h * Goal Range: Low 110 mg/dL - High 150 mg/dL * Correction Factor: 25 mg/dL/unit * Nutritional / Prandial insulin per carb ratio of 1 unit per 8 grams CHO consumed PLAN FOR DISCHARGE: * TBD - pending A1c
[2020-12-07] MEDS: SODIUM CHLORIDE 0.9% 1000ML 1,000 ML IV SCH ×3 (05:59→18:39)
[2020-12-07] MEDS: PIPERACILLIN/TAZOBACTAM 3.375 GM in DEXTROSE 5% 100 ML IV SCH ×3 (06:26→22:07)
[2020-12-07] MEDS: HEPARIN SOD 5,000 UNIT/0.5 ML VIAL SQ SCH ×3 (06:34→22:07)
[2020-12-07 08:12] LABS: Hematocrit (blood only) 23.6 % (42-52); Hemoglobin 7.8 g/dL (14.0-18.0); Mean Corpuscular Hemoglobin 27.2 pg (25-34); Mean Corpuscular Hgb Conc 33.1 g/dL (32-36); Mean Corpuscular Volume 82.2 fL (80-100); Mean Platelet Volume 8.9 fL (7.4-10.4); Platelet Count 159 K/uL (130-400); Red Blood Count 2.87 M/uL (4.7-6.1); White Blood Count 13.05 K/uL (4.8-10.8)
[2020-12-07 08:15] LABS: Albumin Level 2.4 gm/dl (3.4-5.0); BUN Creatinine Ratio 18.1 (10-20); C Reactive Protein 7.9 mg/dl (0-0.29); Calcium 7.7 mg/dl (8.5-10.1); Creatinine Clr Calc Pharmacy 39.7 ml/min; Est GFR (African American) 44.1 ml/min; Est GFR (Non-African American) 38.1 ml/min; Magnesium 1.5 mg/dl (1.8-2.4); Potassium 4.8 mmol/L (3.5-5.1)
[2020-12-07 08:18] LABS: Albumin Globulin Ratio 0.7 (0.9-2); Bilirubin,Total 0.8 mg/dl (0.2-1); Globulin 3.3 gm/dl (2.5-4.0); Phosphorus 1.8 mg/dl (2.5-4.9); Total Protein 5.7 gm/dl (6.4-8.2)
[2020-12-07 08:26] LABS: Estimated Average Glucose 189 mg/dl; Hemoglobin A1C 8.2 % (4.5-5.6)
--- NOTE | 2020-12-07 08:57 | Pharmacy Report ---
Pharmacy Abx Initial Consult - Date of Service December 07, 2020 - Pharmacy Dosing Scope Date of Consult: [] Consultation requested by: Dr. Peterson Pharmacy is consulted to initiate vancomycin & zosyn IV dosing therapy, order appropriate labs and adjust drug dose/frequency. - Subjective The patient is a 80 year old M admitted on 12/06/20 18:08. - Objective Height: 5 ft 9 in Weight: 88.7 kg Vital Signs (Past 12hrs): Vital Signs Temp Pulse Pulse Resp BP Pulse Ox 12/07/20 04:03 36.9 C 78 20 138/75 97 12/06/20 23:44 78 12/06/20 23:02 36.8 C 80 24 92/53 L 94 Lab Results (24hrs): Laboratory Tests (24 Hours) 12/07/20 12/07/20 12/07/20 07:13 07:13 07:13 WBC Neut # (Auto) Creatinine 1.69 H Est Cr Clr Drug Dosing 39.7 C-Reactive Protein 7.90 H Procalcitonin 6.29 H Random Vancomycin 15.4 12/07/20 12/06/20 12/06/20 07:13 14:27 14:24 WBC 13.05 H D Neut # (Auto) Creatinine 1.82 H Est Cr Clr Drug Dosing Not Reportable C-Reactive Protein Procalcitonin < 0.05 Random Vancomycin 12/06/20 14:24 WBC 29.91 H Neut # (Auto) 25.80 H Creatinine Est Cr Clr Drug Dosing C-Reactive Protein Procalcitonin Random Vancomycin Micro Results: 12/06/20 15:13 Urine Culture - Pending Urine,Straight Cath 12/06/20 14:35 Aerobic Blood Culture - Pending Blood Anaerobic Blood Culture - Pending 12/06/20 14:24 Aerobic Blood Culture - Pending Blood Anaerobic Blood Culture - Pending - Risk Factors for Resistance none known - Assessment & Plan Assessment 80 year old M who presents with altered mental status and difficulty breathing in the setting of vomiting during a dermatologic procedure- presumed aspiration into the airway. Past medical history significant for CKD and DM. Presents with an acute on chronic kidney injury (SCr 1.82 --> 1.69), significant leukocytosis and elevated lactate. MRSA nasal (+). Blood and urine cultures pending. Procal <0.05 --> 6.29 today. Plan Vancomycin IV * Loading dose: 1500 mg X 1(~17 mg/kg) * Due to KATEY, plan to dose vancomycin by levels until renal function returns to baseline. Random level drawn this AM was ~8hr level and was therapeutic at 15 .4mcg/mL. Plan to re-dose with 1250mg IV X 1 now. Will obtain another random level in the AM. Estimated PK based upon current renal function indicates an estimated half life of ~18hr. * Goal trough level: 15-20 mcg/mL * Trough/Random level ordered for 8 AM. Piperacillin/tazobactam * 4.5 g bolus administered over 30 minutes, then 3.375 g IV extended infusion every 8 hours for CrCl greater than 20 mL/min Pharmacy will continue to follow and will adjust dose/frequency as necessary. Thank you.
[2020-12-07] MEDS ORDERED: VANCOMYCIN HCL 1,250 MG in SODIUM CHLORIDE 0.9% 250 ML IV ONE (09:00)
--- NOTE | 2020-12-07 10:47 | Critical Care Progress Note ---
Date of Service December 07, 2020 Assessment & Plan (1) Aspiration pneumonitis: (2) Pneumonia: (3) Hypotension: Plan: --Multilobar pneumonia Affecting mostly the left lower lobe Likely aspiration Nasal MRSA negative COVID-19 PCR negative Would recommend continuing antibiotics Incentive spirometry will help the patient Aspiration precautions --Metabolic encephalopathy Likely a combination of sedation as well as hypotension Improved --KATEY Resolved Monitor BUNs/creatinine Avoid nephrotoxic medications --Hypotension Transient responded to fluids --DNR/DNI Plan: Continue with antibiotics for 7 days Can transition to p.o. Amoxil Clavulin the patient is able to tolerate Incentive spirometry will be helpful for the patient Case discussed with RN. No further recommendations from critical care. Will sign off. Please note the above document was generated using voice recognition software. It may contain grammatical, syntax or spelling errors.Any formal questions or concerns about the content, text or information contained within the body of this dictation should be directly addressed to the provider for clarification. Admission and Anticipated Discharge Date Admission Date: December 06, 2020 Subjective Patient seen and examined at bedside. No acute distress, no adverse event since coming to the floor. Patient was on 3 L oxygen mask at the time of examination saturating 96% He denies any chest pain, he says the shortness of breath is improved and is feeling much better. He did have abdominal movement which looks like hiccups but he did not complain of any nausea or vomiting. Has been afebrile. Review of Systems Review of Systems: All systems reviewed & are unremarkable except as noted in Subjective Physical Exam Physical Exam: Constitutional: No acute distress HEENT: EOMI, PERRLA, right frontomaxillary dressing in place Respiratory system: Decreased air entry bilaterally, no wheeze, rhonchi, positive crackles bilateral lower lobe CVS: S1-S2 positive Abdomen: Soft, nontender, nondistended, positive bowel sounds x4 Extremities: +2 pulses bilaterally radialis/ dorsalis pedis, right leg AMA, left leg +3 pitting edema Neuro: Awake alert oriented x3 Psych: Normal mood and affect G/U: Positive Griffith Skin: no rashes, warm and dry Lymphatic: no cervical or axillary lymphadenopathy Results & Data Results & Data ([facility]) Vital Signs (Past 12 Hours) Vital Signs Temp Pulse Pulse Resp BP Pulse Ox 12/07/20 09:26 75 12/07/20 04:03 36.9 C 78 20 138/75 97 12/06/20 23:44 78 12/06/20 23:02 36.8 C 80 24 92/53 L 94 12/07/20 07:13 12/07/20 07:13 Coding Level of Care Code 69568 Subseq Hosp Care Lvl 2 Diagnoses Aspiration pneumonitis J69.0 Pneumonia J18.9 Hypotension I95.9
--- NOTE | 2020-12-07 12:35 | Pharmacy Report ---
Pharmacy Glycemic Short Note 2 - Date of Service December 07, 2020 - Glycemic Short BSG Results (Last 24 hours): 12/06/20 12/06/20 12/06/20 14:24 14:32 17:41 Glucose 347 H* POC Glucose 354 H* 324 H* 12/06/20 12/07/20 12/07/20 21:02 00:07 04:09 Glucose POC Glucose 281 H 235 H 190 H 12/07/20 12/07/20 12/07/20 07:13 08:04 12:03 Glucose 162 H POC Glucose 176 H 155 H OUTPATIENT ANTIDIABETIC REGIMEN: * Basaglar 58 units SC HS * A1c = 8.2% (12/07/20) ASSESSMENT: 12/07/20: * Bernardo's glycemic control improved greatly overnight. Respiratory status is improving. Scr is trending back to baseline. * He received a reduced dose of Lantus last evening for NPO status. Fasting BSG of 176 mg/dL this morning is above goal. No other fasting value to compare this to. Will enter a Lantus dose per scale until we have a better idea of what his inpatient insulin needs are. Patient will likely require less basal insulin while admitted due to the addition of bolus insulin to regimen (on basal only at home). * Post prandial BSGs are improved. Will slightly tighten correction factor and leave carb ratio as is. Change to q6h checks. Background: * RW is a 80 year old male presented on 12/06 with altered mental status/hypoxia following aspiration event * Currently NPO and ordered Zosyn to cover possible aspiration pneumonia * BSGs elevated in ED, 347 mg/dL on presentation * BSG improved mildly to 281 mg/dL at time of transfer to floor with no insulin administered * Will hold off on IV insulin bolus * Given NPO status - will give ~70% of basal and use q4h Novolog checks for now PLAN FOR INPATIENT GLYCEMIC CONTROL: * Basal insulin * Lantus SQ per scale HS: * 25 units for BSG < 100 * 30 units for BSG 100 - 180 * 40 units for BSG > 180 * Bolus insulin * NovoLog per scale q6h * Goal Range: Low 110 mg/dL - High 150 mg/dL * Correction Factor: 20 mg/dL/unit * Nutritional / Prandial insulin per carb ratio of 1 unit per 8 grams CHO consumed PLAN FOR DISCHARGE: * TBD
--- NOTE | 2020-12-07 13:12 | Hospitalist Progress Note ---
Date of Service December 07, 2020 Assessment & Plan (1) Altered mental status: (2) Acute metabolic encephalopathy: (3) Aspiration into airway: (4) Vomiting: (5) Elevated lactic acid level: (6) Sepsis: Plan: Based on history provided by ER physician with report of vomiting episodes during dermatological procedure, onset of altered mental status afterwards; patient likely aspirated into the airway. Patient met SIRS criteria with leukocytosis, tachypnea, elevated lactate, initial hypotension, acute kidney injury. Hence, severe sepsis likely secondary to aspiration into the airway. Chest x-ray did not show any obvious opacities.However CT abdomen pelvis does show trace pleural effusion with bibasilar groundglass and consolidative opacities. Patient altered mental status is likely acute metabolic encephalopathy likely to due to sepsis +/- anesthetic meds from procedure. CT head did not show any acute intracranial hemorrhage or mass-effect but reported equivocal 2.4 cm hypodensity within the right frontal lobe. No prior to compare. Got 30 cc/kg IV fluids in ER. Elevated lactate on admission, improved Leukocytosis improved Continue Zosyn for now vessel specialist evaluation noted patient's altered mental status, currently much improved. Dysphagia screen prior to starting oral medications. I called patient's diversional therapist. She reported that during the middle of procedure 1 patient started having vomiting and altered mental status which was a clear change from prior to starting procedure. She recommends to keep the dressing and bandage over right side of the face assess and if it is needed to be changed should contact her to give guidance She recommends bandage over left hand tests from superficial shave biopsy and if bandage needs to be changed, apply Vaseline with Manoj bandage EKG did show T wave inversions in inferolateral leads. Review of past EKG from 2014 confirmed that this is not new. Troponin trend was negative. Old Echo from 2008 reviewed on [facility] Patient is DNR per POLST. manager strategy & account consult to help finding POA/family contact/decision maker (7) Acute renal failure superimposed on chronic kidney disease: Plan: Creatinine is 1.84 (from a baseline of 1.4] Continue IV fluids and monitor Avoid nephrotoxins (8) Diabetes mellitus: Plan: Pharmacy consult for glycemic management Lantus 20 at bedtime for now Insulin every 6 hours while n.p.o. (9) DVT prophylaxis: Plan: Heparin subcu for DVT prophylaxis Plan: Plan to call diversional therapist tomorrow to get more information as it is too late now Admission and Anticipated Discharge Date Admission Date: December 06, 2020 Subjective 80-year-old man with history of DM type II, proximal A. fib, hypertension, liver cirrhosis, rosacea, major depressive disorder, pacemaker in situ who was brought in from dermatology procedure for altered mental status. Being managed for sepsis, aspiration pneumonia/pneumonitis Patient seen and examined. Patient is currently awake alert and oriented to person place and year. He is more interactive today. Reports cough. Denies shortness of breath. Reports some pain at surgical site on the face. Denied any other symptoms Review of Systems Constitutional: no fever, no chills and no fatigue Eyes: no problem reported Ear, Nose, Mouth, Throat: no problem reported Respiratory: + cough; no dyspnea Cardiovascular: no chest pain, no dyspnea, no dyspnea on exertion and no palpitations Gastrointestinal: no abdominal pain, no nausea and no vomiting Genitourinary: no dysuria or no urinary frequency Musculoskeletal: no problem reported Neurologic: + headache(s); no dizziness and no confusion Psychiatric: no depression and no anxiety Physical Exam Constitutional: + well hydrated; no acute distress (tachypneic) Eyes: Left eye : Normal, PERRL Right eye covered with dressing and head bandage ENMT: external ear and nose normal, oropharynx normal Dressing over right anterior side of face covering right eye with bandage Respiratory: normal respiratory effort; no respiratory distress Bilateral crackles Cardiovascular: Rate/Rhythm: regular rate and regular rhythm Gastrointestinal (Abdomen): normal bowel sounds, soft, nontender, no hepatosplenomegaly Musculoskeletal: no cyanosis or clubbing, extremities motor strength 5/5 Bandage over lesion on left hand (dorsum) Neurologic: PERRL, EOMI, accommodation nl, no face palsy, no dysarthria (For left eye. Could not examine right eye) Psychiatric: Orientation: alert, oriented to person, oriented to place and cooperative Genitourinary: no CVA tenderness Results & Data Results & Data ([facility]) Vital Signs (Past 12 Hours) Vital Signs Temp Pulse Pulse Resp BP Pulse Ox 12/07/20 13:01 91 12/07/20 12:00 36.8 C 88 18 131/77 98 12/07/20 09:26 75 12/07/20 08:00 36.8 C 79 24 139/60 96 08/05/21 04:03 36.9 C 78 20 138/75 97 Laboratory Results Abnormal lab results 12/06/20 12/06/20 12/06/20 Range/Units 17:41 18:25 20:19 WBC (4.8-10.8) K/uL RBC (4.7-6.1) M/uL Hgb (14.0-18.0) g/dL Hct (42-52) % RDW Coeff of Elizabeth (11.5-14.5) % ABG pH (7.35-7.45) ABG pCO2 (35-46) mmHg ABG pO2 (80-95) mmHg ABG HCO3 (19-24) mmol/L Chloride (98-107) mmol/L BUN (7-18) mg/dl Creatinine (0.6-1.4) mg/dl Glucose (70-99) mg/dl POC Glucose 324 H* (70-99) mg/dl Hemoglobin A1c (4.5-5.6) % Lactate 5.3 H* 6.9 H* (0.4-2.0) mmol/L Calcium (8.5-10.1) mg/dl Phosphorus (2.5-4.9) mg/dl Magnesium (1.8-2.4) mg/dl C-Reactive Protein (0-0.29) mg/dl Total Protein (6.4-8.2) gm/dl Albumin (3.4-5.0) gm/dl Albumin/Globulin Ratio (0.9-2) Procalcitonin (0-0.5) ng/ml Nasal Screen MRSA (PCR) (Negative) 12/06/20 12/06/20 12/06/20 Range/Units 21:02 22:00 23:34 WBC (4.8-10.8) K/uL RBC (4.7-6.1) M/uL Hgb (14.0-18.0) g/dL Hct (42-52) % RDW Coeff of Elizabeth (11.5-14.5) % ABG pH 7.32 L (7.35-7.45) ABG pCO2 34 L (35-46) mmHg ABG pO2 74 L (80-95) mmHg ABG HCO3 17 L (19-24) mmol/L Chloride (98-107) mmol/L BUN (7-18) mg/dl Creatinine (0.6-1.4) mg/dl Glucose (70-99) mg/dl POC Glucose 281 H (70-99) mg/dl Hemoglobin A1c (4.5-5.6) % Lactate (0.4-2.0) mmol/L Calcium (8.5-10.1) mg/dl Phosphorus (2.5-4.9) mg/dl Magnesium (1.8-2.4) mg/dl C-Reactive Protein (0-0.29) mg/dl Total Protein (6.4-8.2) gm/dl Albumin (3.4-5.0) gm/dl Albumin/Globulin Ratio (0.9-2) Procalcitonin (0-0.5) ng/ml Nasal Screen MRSA (PCR) Positive A (Negative) 12/07/20 12/07/20 12/07/20 Range/Units 00:07 02:22 04:09 WBC (4.8-10.8) K/uL RBC (4.7-6.1) M/uL Hgb (14.0-18.0) g/dL Hct (42-52) % RDW Coeff of Elizabeth (11.5-14.5) % ABG pH (7.35-7.45) ABG pCO2 (35-46) mmHg ABG pO2 (80-95) mmHg ABG HCO3 (19-24) mmol/L Chloride (98-107) mmol/L BUN (7-18) mg/dl Creatinine (0.6-1.4) mg/dl Glucose (70-99) mg/dl POC Glucose 235 H 190 H (70-99) mg/dl Hemoglobin A1c (4.5-5.6) % Lactate 2.9 H* (0.4-2.0) mmol/L Calcium (8.5-10.1) mg/dl Phosphorus (2.5-4.9) mg/dl Magnesium (1.8-2.4) mg/dl C-Reactive Protein (0-0.29) mg/dl Total Protein (6.4-8.2) gm/dl Albumin (3.4-5.0) gm/dl Albumin/Globulin Ratio (0.9-2) Procalcitonin (0-0.5) ng/ml Nasal Screen MRSA (PCR) (Negative) 12/07/20 12/07/20 12/07/20 Range/Units 07:13 07:13 07:13 WBC 13.05 H D (4.8-10.8) K/uL RBC 2.87 L (4.7-6.1) M/uL Hgb 7.8 L (14.0-18.0) g/dL Hct 23.6 L (42-52) % RDW Coeff of Elizabeth 15.0 H (11.5-14.5) % ABG pH (7.35-7.45) ABG pCO2 (35-46) mmHg ABG pO2 (80-95) mmHg ABG HCO3 (19-24) mmol/L Chloride 117 H (98-107) mmol/L BUN 31 H (7-18) mg/dl Creatinine 1.69 H (0.6-1.4) mg/dl Glucose 162 H (70-99) mg/dl POC Glucose (70-99) mg/dl Hemoglobin A1c 8.2 H (4.5-5.6) % Lactate (0.4-2.0) mmol/L Calcium 7.7 L (8.5-10.1) mg/dl Phosphorus 1.8 L (2.5-4.9) mg/dl Magnesium 1.5 L (1.8-2.4) mg/dl C-Reactive Protein 7.90 H (0-0.29) mg/dl Total Protein 5.7 L (6.4-8.2) gm/dl Albumin 2.4 L (3.4-5.0) gm/dl Albumin/Globulin Ratio 0.7 L (0.9-2) Procalcitonin (0-0.5) ng/ml Nasal Screen MRSA (PCR) (Negative) 12/07/20 12/07/20 12/07/20 Range/Units 07:13 08:04 12:03 WBC (4.8-10.8) K/uL RBC (4.7-6.1) M/uL Hgb (14.0-18.0) g/dL Hct (42-52) % RDW Coeff of Elizabeth (11.5-14.5) % ABG pH (7.35-7.45) ABG pCO2 (35-46) mmHg ABG pO2 (80-95) mmHg ABG HCO3 (19-24) mmol/L Chloride (98-107) mmol/L BUN (7-18) mg/dl Creatinine (0.6-1.4) mg/dl Glucose (70-99) mg/dl POC Glucose 176 H 155 H (70-99) mg/dl Hemoglobin A1c (4.5-5.6) % Lactate (0.4-2.0) mmol/L Calcium (8.5-10.1) mg/dl Phosphorus (2.5-4.9) mg/dl Magnesium (1.8-2.4) mg/dl C-Reactive Protein (0-0.29) mg/dl Total Protein (6.4-8.2) gm/dl Albumin (3.4-5.0) gm/dl Albumin/Globulin Ratio (0.9-2) Procalcitonin 6.29 H (0-0.5) ng/ml Nasal Screen MRSA (PCR) (Negative)
[2020-12-07] MEDS ORDERED: ACETAMINOPHEN 1,000 MG/100 ML VIAL IV PRN (15:18)
[2020-12-07] MEDS: INSULIN GLARGINE SOLOSTAR 100 UNITS/ML 3 ML PEN SQ SCH (22:06)
[2020-12-08] MEDS: INSULIN ASPART 100 UNITS/ML 3 ML PEN SC SCH ×4 (01:11→18:23)
[2020-12-08] MEDS: SODIUM CHLORIDE 0.9% 1000ML 1,000 ML IV SCH ×2 (05:28→15:32)
[2020-12-08] MEDS: PIPERACILLIN/TAZOBACTAM 3.375 GM in DEXTROSE 5% 100 ML IV SCH ×3 (06:35→20:37)
[2020-12-08] MEDS: HEPARIN SOD 5,000 UNIT/0.5 ML VIAL SQ SCH ×3 (06:36→20:40)
[2020-12-08 07:56] LABS: Hematocrit (blood only) 22.1 % (42-52); Hemoglobin 7.3 g/dL (14.0-18.0); Mean Corpuscular Hemoglobin 27.3 pg (25-34); Mean Corpuscular Volume 82.8 fL (80-100); Mean Platelet Volume 8.9 fL (7.4-10.4); Platelet Count 151 K/uL (130-400); RDW Coefficient of Variation 15.3 % (11.5-14.5); RDW Standard Deviation 46.3 fL (36.4-46.3); Red Blood Count 2.67 M/uL (4.7-6.1); White Blood Count 9.44 K/uL (4.8-10.8)
[2020-12-08 08:27] LABS: Albumin Globulin Ratio 0.7 (0.9-2); Albumin Level 2.5 gm/dl (3.4-5.0); BUN Creatinine Ratio 16.4 (10-20); Bilirubin,Total 0.6 mg/dl (0.2-1); Calcium 7.7 mg/dl (8.5-10.1); Creatinine Clr Calc Pharmacy 48.6 ml/min; Est GFR (African American) 56.4 ml/min; Est GFR (Non-African American) 48.6 ml/min; Globulin 3.6 gm/dl (2.5-4.0); Total Protein 6.1 gm/dl (6.4-8.2)
--- NOTE | 2020-12-08 08:46 | Pharmacy Report ---
Pharmacy Abx Dose Progress Nt - Date of Service December 08, 2020 - Pharmacy Dosing Scope The patient is currently receiving the following antimicrobial agents per Pharmacy consult: [ ] mg IV/PO every [ ] hours - Objective Vital Signs (Past 12hrs): Vital Signs Temp Pulse Pulse Resp BP Pulse Ox 12/08/20 07:29 67 12/08/20 03:51 36.9 C 77 18 155/68 H 92 12/07/20 23:24 36.9 C 64 18 149/72 H 93 Lab Results (24hrs): Laboratory Tests (24 Hours) 12/08/20 12/08/20 12/08/20 07:23 07:23 07:23 WBC 9.44 Creatinine 1.38 D Est Cr Clr Drug Dosing 48.6 Random Vancomycin 11.8 Micro Results: 12/06/20 14:35 Anaerobic Blood Culture - Final Blood - Risk Factors for Resistance * Resident in a snf or extended-care facility - Assessment & Plan Assessment 80 year old M receiving VANCOMYCIN + ZOSYN for treatment of Sepsis secondary to pulmonary source/?aspiration pna Day # 3 of antimicrobial therapy Presents with an acute on chronic kidney injury (SCr 1.82 --> 1.69-->1.38), significant leukocytosis and elevated lactate. MRSA nasal (+) Blood and urine cultures negative (one BC +GPC but likely contaminant) Plan Vancomycin IV * Random level of 11.8 mcg/mL is in target range for re-dosing vanco * Since Scr significantly improved, will ordered a scheduled dose of Vanco 750 mg (8.5 mg/kg) IV Q12hrs and check a trough level in 24hrs. May need to adjust dosing if Scr continues to improve. * Goal trough level for bacteremia/pulm : 15 to 20 mcg/mL * Trough level ordered for: 12/09/20 Piperacillin/tazobactam * 4.5 g bolus administered over 30 minutes, then 3.375 g IV extended infusion every 8 hours for CrCl greater than 20 mL/min Pharmacy will continue to follow and will adjust dose/frequency as necessary. Thank you.
--- NOTE | 2020-12-08 09:16 | Oral/Maxillofacial Consult ---
Date of Consultation December 08, 2020 Patient was seen this AM in room 237. 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 Because of large surgical defect a large rotational flap from temporal area was raised with the plan of rotating it into the cheek defect. The Flap incision extends from the temporal area to above the zygomatic arch with a few cut backs to allow rotation. The plan was to rotate the flap to close the defect and prevent lateral right eye lid constriction from future scaring. The temporal area was to heal by secondary intention and local wound care, no skin graft was planned. The flap was raised and adjusted. While getting ready to place (suture) the flap the patient had a reaction and vomited with a possible aspiration. There was a change in mental status and he was transferred to the ED for evaluation and subsequent admission to the hospital. I removed the dressing to see the viability of the flap and surgical defect. The large flap is still vital with good perfusion,the edges are still pink and looks robust. The tissue bed is healthy. I called Dr Gia Macdonald[facility] and we reviewed the case. The plan is to close the flap and allow the superior temporal area to heal by secondary intention and routine wound care. From a surgical point of view given the quality of the flap doing the repair is a routine procedure. The complicating issue is the medical management, anesthesia management and coordinating with the family. I have Mr. Cottrell scheduled for Dec.11 in the OR with General anesthesia (intubation). This all depends on getting medical clearance from hospital medicine. I will need to discuss the surgical procedure with the POA and get consents signed. Please advice when and if the patient will be ready for the anesthesia and surgical procedure. History of Present Illness Attending Physician: Khalida Hardwick MD Allergies Allergy/AdvReac Type Severity Reaction Status Date / Time No Known Allergies Allergy Mild Verified 12/06/20 14:34 Home Medications Medication Instructions Recorded Confirmed Type loratadine 10 mg tablet 10 mg PO DAILY 12/15/19 12/06/20 History methenamine hippurate 1 gram tablet 1 g PO BID 12/15/19 12/06/20 History mirtazapine 7.5 mg tablet 7.5 mg HS 12/15/19 12/06/20 History rivaroxaban 15 mg tablet (Xarelto) 15 mg PO PM 12/15/19 12/06/20 History tamsulosin 0.4 mg capsule 0.4 mg PO BID 12/15/19 12/06/20 History acetaminophen 325 mg tablet 650 mg PO Q6 PRN MDD 3g 12/06/20 12/06/20 History amlodipine 10 mg tablet 10 mg PO DAILY 12/06/20 12/06/20 History aspirin 81 mg chewable tablet 81 mg PO DAILY 12/06/20 12/06/20 History cholecalciferol (vitamin D3) 25 50 mcg PO DAILY 12/06/20 12/06/20 History mcg (1,000 unit) tablet (Vitamin D3) docusate sodium 100 mg capsule 200 mg PO BID 12/06/20 12/06/20 History (Colace) finasteride 5 mg tablet 5 mg PO DAILY 12/06/20 12/06/20 History gabapentin 100 mg capsule 100 mg PO TID 12/06/20 12/06/20 History insulin glargine 100 unit/mL (3 58 unit SUBCUT HS 12/06/20 12/06/20 History mL) subcutaneous pen (Basaglar KwikPen U-100 Insulin) lisinopril 5 mg tablet 5 mg PO DAILY 12/06/20 12/06/20 History omeprazole 40 mg capsule,delayed 40 mg PO BID 12/06/20 12/06/20 History release polyethylene glycol 3350 17 17 g PO Q OTHER DAY 12/06/20 12/06/20 History gram/dose oral powder (ClearLax) sennosides 8.6 mg tablet (Senokot) 17.2 mg PO BID 12/06/20 12/06/20 History simvastatin 20 mg tablet 20 mg PO HS 12/06/20 12/06/20 History Patient History Medical History Diabetes mellitus Social History Smoking Status: Unknown if ever smoked Preferred Language: Luxembourgish Communication Ability: Effective Communication Ability Comment: pt is confused and unable to provide history Signal Engineer Required: No Beliefs That Will Affect Care: None Current Living Situation: Other Current Living Situation Comment: unknown-pt confused unable to obtain information Feels Safe at Home: Yes Assistive Devices: Oxygen - Continuous Results & Data ([place]) Vital Signs (Past 12 Hours) Vital Signs Temp Pulse Pulse Resp BP Pulse Ox 12/08/20 08:00 36.9 C 86 18 148/74 H 12/08/20 07:29 67 12/08/20 03:51 36.9 C 77 18 155/68 H 92 12/07/20 23:24 36.9 C 64 18 149/72 H 93 PG Care Time/CCT Total # of Minutes Spent Total Time Spent with Patient: Total time spent is greater than 50% in coordination of care (as documented) at patient's floor/unit and/or counseling patient: Coding Level of Care Code 03726 Initial Inpt Care Lvl 3
[2020-12-08 09:51] LABS: Magnesium 1.8 mg/dl (1.8-2.4); Phosphorus 1.6 mg/dl (2.5-4.9)
[2020-12-08] MEDS ORDERED: POTASSIUM PHOS 3 MMOL/1 ML INFUSION IV STA (09:59)
--- NOTE | 2020-12-08 09:59 | Hospitalist Progress Note ---
Date of Service December 08, 2020 Assessment & Plan (1) Altered mental status: (2) Acute metabolic encephalopathy: (3) Aspiration into airway: (4) Vomiting: (5) Elevated lactic acid level: (6) Sepsis: Plan: Based on history provided by ER physician with report of vomiting episodes during dermatological procedure, onset of altered mental status afterwards; patient likely aspirated into the airway. Patient met SIRS criteria with leukocytosis, tachypnea, elevated lactate, initial hypotension, acute kidney injury. Hence, severe sepsis likely secondary to aspiration into the airway. Chest x-ray did not show any obvious opacities.However CT abdomen pelvis does show trace pleural effusion with bibasilar groundglass and consolidative opacities. Patient altered mental status is likely acute metabolic encephalopathy likely to due to sepsis +/- anesthetic meds from procedure. CT head did not show any acute intracranial hemorrhage or mass-effect but reported equivocal 2.4 cm hypodensity within the right frontal lobe. No prior to compare. Got 30 cc/kg IV fluids in ER. Elevated lactate on admission, improved Leukocytosis resolved Continue Zosyn for now optical instrument specialist evaluation noted Patient's altered mental status, currently much improved. Did not do very well with dysphagia screen yesterday. Hence still NPO COOK PIE planning for full eval with video study CT head on admission reported a 2.4cm hypodensity (no prior CT to compare). Discussed with radiologist, will get repeat CT head for better evaluation I spoke with audio visual facilities engineer Dr Gia Macdonald late yesterday. She recommended evaluation by plastic surgery to determine viability of flap at this fascial surgical site. Discussed with Dr. Miranda who is currently evaluating patient. EKG did show T wave inversions in inferolateral leads. Review of past EKG from 2014 confirmed that this is not new. Troponin trend was negative. Old Echo from 2008 reviewed on [facility] Echo done this admission shows moderate concentric LVH, apical wall motion abnormality, no regional wall motion abnormalities detected, EF of 60 to 65% Patient is DNR per POLST. assistant sales manager working to get paperwork for POA/family contact/decision maker (7) Acute renal failure superimposed on chronic kidney disease: Plan: Creatinine is 1.38 (back to baseline of 1.4] Continue IV fluids while n.p.o. and monitor Avoid nephrotoxins Phosphate is low today at 1.6 Replete and monitor (8) Diabetes mellitus: Plan: Pharmacy on board for glycemic management Continue insulin regimen (9) DVT prophylaxis: Plan: Heparin subcu for DVT prophylaxis Admission and Anticipated Discharge Date Admission Date: December 06, 2020 Subjective 80-year-old man with history of DM type II, proximal A. fib, hypertension, liver cirrhosis, rosacea, major depressive disorder, pacemaker in situ who was brought in from dermatology procedure for altered mental status. Being managed for sepsis, aspiration pneumonia/pneumonitis Patient seen and examined. Patient reports only cough. Denies any other complaints. Is currently alert and oriented to person place. Not oriented to time. Review of Systems Constitutional: no fever, no chills and no fatigue Eyes: no problem reported Ear, Nose, Mouth, Throat: no problem reported Respiratory: + cough; no dyspnea Cardiovascular: no chest pain, no dyspnea, no dyspnea on exertion and no palpitations Gastrointestinal: no abdominal pain, no nausea and no vomiting Genitourinary: no dysuria or no urinary frequency Musculoskeletal: no problem reported Neurologic: no dizziness, no headache(s) and no confusion Psychiatric: no depression and no anxiety Physical Exam Constitutional: + well hydrated; no acute distress (tachypneic) ENMT: external ear and nose normal, oropharynx normal Respiratory: normal respiratory effort; no respiratory distress Cardiovascular: Rate/Rhythm: regular rate and regular rhythm Gastrointestinal (Abdomen): normal bowel sounds, soft, nontender, no hepatosplenomegaly Musculoskeletal: no cyanosis or clubbing, extremities motor strength 5/5 Skin: Extensive wound on right side of face/cheek with exposed subcutaneous tissue at site of dermatological procedure and over right moravian as well Was examined with Plastic surgeon Neurologic: PERRL, EOMI, accommodation nl, no face palsy, no dysarthria Psychiatric: Orientation: alert, oriented to person, oriented to place and cooperative Genitourinary: no CVA tenderness Results & Data Results & Data ([facility]) Vital Signs (Past 12 Hours) Vital Signs Temp Pulse Pulse Resp BP Pulse Ox 12/08/20 08:00 36.9 C 86 18 148/74 H 12/08/20 07:29 67 12/08/20 03:51 36.9 C 77 18 155/68 H 92 12/07/20 23:24 36.9 C 64 18 149/72 H 93 Laboratory Results Abnormal lab results 12/07/20 12/07/2021 Range/Units 18:00 22:03 01:10 RBC (4.7-6.1) M/uL Hgb (14.0-18.0) g/dL Hct (42-52) % RDW Coeff of Elizabeth (11.5-14.5) % Chloride (98-107) mmol/L BUN (7-18) mg/dl Glucose (70-99) mg/dl POC Glucose 129 H 108 H 117 H (70-99) mg/dl Calcium (8.5-10.1) mg/dl Phosphorus (2.5-4.9) mg/dl AST (15-37) U/L Total Protein (6.4-8.2) gm/dl Albumin (3.4-5.0) gm/dl Albumin/Globulin Ratio (0.9-2) 12/08/20 12/08/20 12/08/20 Range/Units 06:38 07:23 07:23 RBC 2.67 L (4.7-6.1) M/uL Hgb 7.3 L (14.0-18.0) g/dL Hct 22.1 L (42-52) % RDW Coeff of Elizabeth 15.3 H (11.5-14.5) % Chloride 116 H (98-107) mmol/L BUN 23 H (7-18) mg/dl Glucose 130 H (70-99) mg/dl POC Glucose 123 H (70-99) mg/dl Calcium 7.7 L (8.5-10.1) mg/dl Phosphorus (2.5-4.9) mg/dl AST 46 H (15-37) U/L Total Protein 6.1 L (6.4-8.2) gm/dl Albumin 2.5 L (3.4-5.0) gm/dl Albumin/Globulin Ratio 0.7 L (0.9-2) 12/08/20 12/08/20 Range/Units 07:23 12:08 RBC (4.7-6.1) M/uL Hgb (14.0-18.0) g/dL Hct (42-52) % RDW Coeff of Elizabeth (11.5-14.5) % Chloride (98-107) mmol/L BUN (7-18) mg/dl Glucose (70-99) mg/dl POC Glucose 121 H (70-99) mg/dl Calcium (8.5-10.1) mg/dl Phosphorus 1.6 L (2.5-4.9) mg/dl AST (15-37) U/L Total Protein (6.4-8.2) gm/dl Albumin (3.4-5.0) gm/dl Albumin/Globulin Ratio (0.9-2)
[2020-12-08] MEDS: VANCOMYCIN HCL 750 MG in SODIUM CHLORIDE 0.9% 250 ML IV SCH ×2 (10:00→20:37)
[2020-12-08] MEDS ORDERED: POTASSIUM PHOSPHATE 21 MMOL in SODIUM CHLORIDE 0.9% 500 ML IV ONE (10:30)
--- NOTE | 2020-12-08 12:49 | Pharmacy Report ---
Pharmacy Glycemic Short Note 2 - Date of Service December 08, 2020 - Glycemic Short BSG Results (Last 24 hours): 12/07/20 12/07/20 12/08/20 18:00 22:03 01:10 Glucose POC Glucose 129 H 108 H 117 H 12/08/20 12/08/20 12/08/20 06:38 07:23 12:08 Glucose 130 H POC Glucose 123 H 121 H OUTPATIENT ANTIDIABETIC REGIMEN: * Basaglar 58 units SC HS * A1c = 8.2% (12/07/20) ASSESSMENT: 12/08 * Lantus held last evening for BSG = 108 mg/dl and NPO * No basal insulin given at all yesterday * BSGs in goal range today and patient is still NPO. Concern for rebound hyperglycemia without any basal on board despite NPO status. Patient takes large doses of basal insulin as an outpatient. Will further lower basal insulin for this evening since minimal insulin required while NPO. 12/07/20: * Bernardo's glycemic control improved greatly overnight. Respiratory status is improving. Scr is trending back to baseline. * He received a reduced dose of Lantus last evening for NPO status. Fasting BSG of 176 mg/dL this morning is above goal. No other fasting value to compare this to. Will enter a Lantus dose per scale until we have a better idea of what his inpatient insulin needs are. Patient will likely require less basal insulin while admitted due to the addition of bolus insulin to regimen (on basal only at home). * Post prandial BSGs are improved. Will slightly tighten correction factor and leave carb ratio as is. Change to q6h checks. Background: * RW is a 80 year old male presented on 12/06 with altered mental status/hypoxia following aspiration event * Currently NPO and ordered Zosyn to cover possible aspiration pneumonia * BSGs elevated in ED, 347 mg/dL on presentation * BSG improved mildly to 281 mg/dL at time of transfer to floor with no insulin administered * Will hold off on IV insulin bolus * Given NPO status - will give ~70% of basal and use q4h Novolog checks for now PLAN FOR INPATIENT GLYCEMIC CONTROL: * Basal insulin * Lantus SQ per scale HS: * 8 units for BSG < 100 * 15 units for BSG 100 - 180 * 21 units for BSG > 180 * Bolus insulin * NovoLog per scale q6h * Goal Range: Low 110 mg/dL - High 150 mg/dL * Correction Factor: 20 mg/dL/unit * Nutritional / Prandial insulin per carb ratio of 1 unit per 8 grams CHO consumed PLAN FOR DISCHARGE: * TBD
--- NOTE | 2020-12-08 14:18 | CT Scan Report ---
CT head/brain wo con CLINICAL HISTORY: 80 years-old Male with To reeval 2.4cm hypodensity seen on CT on admissio. Acutely altered mental status. TECHNIQUE: Multiple axial CT images of the head were obtained without contrast. A dose lowering tech nique was utilized adhering to the principles of ALARA. CT DOSE: 1400.53 mGy.cm COMPARISON: None. FINDINGS: No acute intracranial hemorrhage, midline shift, intracranial mass, hydrocephalus, territorial ischem ia or abnormal extra-axial collection. Age-related involutional changes. White matter hypodensities s uggestive of chronic microvascular ischemic disease. The previously questioned and hypodensity of the right frontal lobe is not definitively seen on today's study. Cavum septum pellucidum and vergae. Co arse calcifications of the falx cerebri. The calvarium is intact. Large skin defect of the right face and right temporal scalp redemonstrated. The paranasal sinuses, mastoid air cells, and middle ear cavities are clear. IMPRESSION: 1. Motion degraded exam without acute intracranial abnormality identified. 2. No acute or subacute territorial infarct. 3. Age-related involutional changes with chronic microvascular ischemic disease. 4. Large skin defect of the right face and right temporal scalp. ACT 112: Negative or not required by law. The above report was generated using voice recognition software. It may contain grammatical, syntax o r spelling errors. Electronically signed by: Judd Garcia M.D. 12/08/2020 2:16 PM
--- NOTE | 2020-12-08 15:09 | Fluoroscopy Report ---
MODIFIED BARIUM SWALLOW CLINICAL HISTORY: r/o aspiration; + s/s aspiration at bedside COMPARISON STUDY: None. FLUOROSCOPY TIME: 0.8 minutes. TECHNIQUE: A modified barium swallow was performed in conjunction with Speech Pathology. The patient ingested varying consistencies of barium containing material. Video fluoroscopy was performed. FINDINGS: No tracheal aspiration was identified with thin liquids, nectar thick liquids or pudding co nsistency. Epiglottic inversion was normal. Laryngeal elevation was normal. IMPRESSION: 1. No tracheal aspiration identified. 2. Full recommendations by speech pathology to follow. ACT 112: Negative or not required by law. Electronically signed by: Otilio Douglas M.D. 12/08/2020 3:08 PM
--- NOTE | 2020-12-08 17:26 | Electrocardiogram Report ---
Test Reason : Blood Pressure : / mmHG Vent. Rate : 062 BPM Atrial Rate : 065 BPM P-R Int : 376 ms QRS Dur : 102 ms QT Int : 446 ms P-R-T Axes : 000 -29 -72 degrees QTc Int : 452 ms Atrial-paced rhythm with prolonged AV conduction Incomplete right bundle branch block Abnormal ECG When compared with ECG of 22-JAN-2011 06:34, Electronic atrial pacemaker has replaced Sinus rhythm Incomplete right bundle branch block is now Present Criteria for Septal infarct are no longer Present ST/T wave abnormality is now present in inferior and anterolateral leads Confirmed by Misael Nelson ([id number]) on 12/08/2020 5:25:40 PM Referred By: REFERRED SELF Confirmed By:Misael Nelson
[2020-12-08] MEDS: INSULIN GLARGINE SOLOSTAR 100 UNITS/ML 3 ML PEN SQ SCH (20:38)
[2020-12-09] MEDS: SODIUM CHLORIDE 0.9% 1000ML 1,000 ML IV SCH (01:46)
[2020-12-09] MEDS: PIPERACILLIN/TAZOBACTAM 3.375 GM in DEXTROSE 5% 100 ML IV SCH ×3 (06:20→20:54)
[2020-12-09] MEDS: HEPARIN SOD 5,000 UNIT/0.5 ML VIAL SQ SCH ×3 (06:21→20:44)
[2020-12-09] MEDS ORDERED: VANCOMYCIN TROUGH ONE (08:30)
[2020-12-09 08:50] LABS: Hematocrit (blood only) 22.2 % (42-52); Hemoglobin 7.3 g/dL (14.0-18.0); Mean Corpuscular Hemoglobin 26.6 pg (25-34); Mean Corpuscular Hgb Conc 32.9 g/dL (32-36); Mean Platelet Volume 8.9 fL (7.4-10.4); Platelet Count 164 K/uL (130-400); RDW Standard Deviation 44.8 fL (36.4-46.3); Red Blood Count 2.74 M/uL (4.7-6.1); White Blood Count 10.06 K/uL (4.8-10.8)
[2020-12-09 09:10] LABS: BUN Creatinine Ratio 18.1 (10-20); Calcium 7.8 mg/dl (8.5-10.1); Creatinine Clr Calc Pharmacy 56.9 ml/min; Est GFR (African American) 68.1 ml/min; Est GFR (Non-African American) 58.8 ml/min; Magnesium 1.4 mg/dl (1.8-2.4); Potassium 3.6 mmol/L (3.5-5.1)
[2020-12-09 09:11] LABS: Phosphorus 1.8 mg/dl (2.5-4.9)
[2020-12-09] MEDS: INSULIN ASPART 100 UNITS/ML 3 ML PEN SC SCH ×4 (09:30→20:45)
[2020-12-09] MEDS: VANCOMYCIN HCL 750 MG in SODIUM CHLORIDE 0.9% 250 ML IV SCH (09:31)
[2020-12-09] MEDS ORDERED: POTASSIUM PHOS 3 MMOL/1 ML INFUSION IV STA (11:11)
[2020-12-09] MEDS ORDERED: POTASSIUM PHOSPHATE 21 MMOL in SODIUM CHLORIDE 0.9% 500 ML IV ONE (11:30)
[2020-12-09] MEDS: MAGNESIUM SULFATE / D5W 1 GM/100 ML BAG IV SCH ×2 (11:45→13:45)
--- NOTE | 2020-12-09 11:55 | Pharmacy Report ---
Pharmacy Abx Dose Short Note - Date of Service December 09, 2020 - Assessment & Plan Assessment 80 year old M receiving vancomycin + zosyn for treatment of sepsis secondary to pulmonary source/aspiration pna. Presents with an acute on chronic kidney injury, and renal function continues to improve and is at baseline. Leukocytosis is resolving, and pt has been afebrile. MRSA nasal (+). Blood cultures (+) 1/ for Staph, not aureus. Likely contaminant. Vancomycin trough drawn appropriately this AM and was a 12hr level. Day # 4 of antimicrobial therapy Plan Vancomycin * Trough level of 10.7 mcg/mL is subtherapeutic. Although not a steady state level, unlikely to achieve target of 15mcg/mL with this regimen. * Change to 1000 mg IV every 12 hours * Goal trough level for pneumonia : 15-20mcg/mL * Trough or random level ordered for: 8/9 AM Pharmacy will continue to follow and will adjust dose/frequency as necessary. Thank you.
--- NOTE | 2020-12-09 12:08 | Hospitalist Progress Note ---
Date of Service December 09, 2020 Assessment & Plan (1) Altered mental status: (2) Acute metabolic encephalopathy: (3) Aspiration into airway: (4) Vomiting: (5) Elevated lactic acid level: (6) Sepsis: Plan: Based on history provided by ER physician with report of vomiting episodes during dermatological procedure, onset of altered mental status afterwards; patient likely aspirated into the airway. Patient met SIRS criteria with leukocytosis, tachypnea, elevated lactate, initial hypotension, acute kidney injury. Hence, severe sepsis likely secondary to aspiration into the airway. Chest x-ray did not show any obvious opacities.However CT abdomen pelvis does show trace pleural effusion with bibasilar groundglass and consolidative opacities. Patient altered mental status is likely acute metabolic encephalopathy likely to due to sepsis +/- anesthetic meds from procedure. CT head did not show any acute intracranial hemorrhage or mass-effect but reported equivocal 2.4 cm hypodensity within the right frontal lobe. No prior to compare. Got 30 cc/kg IV fluids in ER. Elevated lactate on admission, improved Leukocytosis resolved Continue Zosyn for now Blood culture 1 of 2 growing staph. Likely contaminant. Will follow up repeat cultures. If negative, will deescal vanc and change to Augmentin to complete treatment word processing specialist evaluation noted Patient's altered mental status, currently much improved. Did not do very well with dysphagia screen. Had WIRELESS WATCHER eval with video study which did not show any tracheal aspiration. Tolerating diet well. IV fluids discontinued. Patient's home medication including amlodipine, lisinopril, simvastatin, tamsulosin, finasteride resumed p.o. Hold home Xarelto for now in view of planned surgery. CT head on admission reported a 2.4cm hypodensity (no prior CT to compare). Radiologist recommended repeat CT scan which did not show any acute or subacute infarcts. Home Paraprofessional Dr Gia Macdonald recommended evaluation by plastic surgery to determine viability of flap at this fascial surgical site. Evaluation by plastic surgeon, Dr. Miranda appreciated. Plan for OR on Friday for right facial flap closure. EKG on admission did show T wave inversions in inferolateral leads. Review of past EKG from 2014 confirmed that this is not new. Troponin trend was negative. Old Echo from 2008 reviewed on EPIC Echo done this admission shows moderate concentric LVH, apical wall motion abnormality, no regional wall motion abnormalities detected, EF of 60 to 65% Normocytic anemia-Hemoglobin was 9.9 on admission and dropped to the sevens has been stable since. Drop likely due to IV fluid resuscitation. Patient is DNR per POLST. Attempt at contacting POA previously was unanswered. We'll try again today (7) Acute renal failure superimposed on chronic kidney disease: Plan: Creatinine is 1.38 (back to baseline of 1.4] Continue IV fluids while n.p.o. and monitor Avoid nephrotoxins Patient has multiple electrolyte abnormalities today including Hypomagnesemia and hypophosphatemia. Replete and monitor. (8) Diabetes mellitus: Plan: Pharmacy on board for glycemic management Continue insulin regimen (9) DVT prophylaxis: Plan: Heparin subcu for DVT prophylaxis Xarelto on hold due to planned surgery Admission and Anticipated Discharge Date Admission Date: December 06, 2020 Subjective 80-year-old man with history of DM type II, proximal A. fib, hypertension, liver cirrhosis, rosacea, major depressive disorder, pacemaker in situ who was brought in from dermatology procedure for altered mental status. Being managed for sepsis, aspiration pneumonia/pneumonitis Patient seen and examined. Reports mild cough and mild lower abdominal discomfort. Denies any other complaints Review of Systems Constitutional: no fever, no chills and no fatigue Eyes: no problem reported Ear, Nose, Mouth, Throat: no problem reported Respiratory: + cough; no dyspnea Cardiovascular: no chest pain, no dyspnea, no dyspnea on exertion and no palpitations Gastrointestinal: + abdominal pain; no nausea and no vomiting Genitourinary: no dysuria or no urinary frequency Musculoskeletal: no problem reported Neurologic: no dizziness, no headache(s) and no confusion Psychiatric: no depression and no anxiety Physical Exam Constitutional: + well hydrated; no acute distress ENMT: external ear and nose normal, oropharynx normal Respiratory: normal respiratory effort; no respiratory distress Cardiovascular: Rate/Rhythm: regular rate and regular rhythm S1-S2 Gastrointestinal (Abdomen): normal bowel sounds, soft, nontender, no hepatosplenomegaly Musculoskeletal: 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 Limited insight Genitourinary: no CVA tenderness Results & Data Results & Data ([facility]) Vital Signs (Past 12 Hours) Vital Signs Temp Pulse Resp BP Pulse Ox 12/09/20 11:36 36.2 C L 62 18 181/69 H 92 12/09/20 07:52 36.6 C 60 20 178/70 H 92 12/09/20 03:00 36.6 C 68 18 130/78 98 Laboratory Results Abnormal lab results 12/08/20 12/08/20 12/09/20 Range/Units 18:22 20:25 07:11 RBC (4.7-6.1) M/uL Hgb (14.0-18.0) g/dL Hct (42-52) % RDW Coeff of Elizabeth (11.5-14.5) % Chloride (98-107) mmol/L BUN (7-18) mg/dl Glucose (70-99) mg/dl POC Glucose 113 H 112 H 109 H (70-99) mg/dl Calcium (8.5-10.1) mg/dl Phosphorus (2.5-4.9) mg/dl Magnesium (1.8-2.4) mg/dl 12/09/20 12/09/20 12/09/20 Range/Units 08:22 08:22 11:16 RBC 2.74 L (4.7-6.1) M/uL Hgb 7.3 L (14.0-18.0) g/dL Hct 22.2 L (42-52) % RDW Coeff of Elizabeth 15.0 H (11.5-14.5) % Chloride 116 H (98-107) mmol/L BUN 21 H (7-18) mg/dl Glucose 105 H (70-99) mg/dl POC Glucose 106 H (70-99) mg/dl Calcium 7.8 L (8.5-10.1) mg/dl Phosphorus 1.8 L (2.5-4.9) mg/dl Magnesium 1.4 L (1.8-2.4) mg/dl
[2020-12-09] MEDS ORDERED: lisinopril 5 MG TAB PO ONE (12:58)
[2020-12-09] MEDS ORDERED: amLODIPine BESYLATE 5 MG TAB PO ONE (12:58)
[2020-12-09] MEDS ORDERED: ACETAMINOPHEN 325 MG TAB PO PRN (13:06)
[2020-12-09] MEDS: POT PHOSPHATE MONOBASIC W/ SOD TAB PO SCH ×3 (13:55→19:51)
[2020-12-09] MEDS: VANCOMYCIN HCL 1,000 MG in SODIUM CHLORIDE 0.9% 250 ML IV SCH (17:14)
[2020-12-09] MEDS: TAMSULOSIN HCL 0.4 MG CAP PO SCH (19:52)
[2020-12-09] MEDS: SIMVASTATIN 20 MG TAB PO SCH (19:52)
[2020-12-09] MEDS: INSULIN GLARGINE SOLOSTAR 100 UNITS/ML 3 ML PEN SQ SCH (20:46)
[2020-12-10] MEDS: VANCOMYCIN HCL 1,000 MG in SODIUM CHLORIDE 0.9% 250 ML IV SCH (04:06)
[2020-12-10] MEDS: PIPERACILLIN/TAZOBACTAM 3.375 GM in DEXTROSE 5% 100 ML IV SCH (05:40)
[2020-12-10] MEDS: HEPARIN SOD 5,000 UNIT/0.5 ML VIAL SQ SCH ×3 (05:41→20:39)
[2020-12-10 06:16] LABS: Hematocrit (blood only) 21.4 % (42-52); Hemoglobin 7.2 g/dL (14.0-18.0); Mean Corpuscular Hemoglobin 27.1 pg (25-34); Mean Corpuscular Hgb Conc 33.6 g/dL (32-36); Mean Corpuscular Volume 80.5 fL (80-100); Nucleated RBC # (auto) 0.02 K/uL (0-0); Nucleated RBC % (auto) 0.2 %; Platelet Count 174 K/uL (130-400); RDW Coefficient of Variation 14.9 % (11.5-14.5); RDW Standard Deviation 43.6 fL (36.4-46.3); Red Blood Count 2.66 M/uL (4.7-6.1); White Blood Count 8.88 K/uL (4.8-10.8)
[2020-12-10 06:55] LABS: BUN Creatinine Ratio 14.7 (10-20); Calcium 7.6 mg/dl (8.5-10.1); Est GFR (African American) 58.4 ml/min; Est GFR (Non-African American) 50.4 ml/min; Magnesium 2.6 mg/dl (1.8-2.4); Potassium 3.6 mmol/L (3.5-5.1)
[2020-12-10 06:56] LABS: Phosphorus 3.4 mg/dl (2.5-4.9)
[2020-12-10] MEDS: INSULIN ASPART 100 UNITS/ML 3 ML PEN SC SCH ×4 (07:55→20:56)
[2020-12-10] MEDS ORDERED: lisinopril 5 MG TAB PO SCH (09:00)
[2020-12-10] MEDS: amLODIPine BESYLATE 5 MG TAB PO SCH (09:20)
[2020-12-10] MEDS: FINASTERIDE 5 MG TAB PO SCH (09:20)
[2020-12-10] MEDS: ASPIRIN 81 MG ECTAB PO SCH (09:20)
[2020-12-10] MEDS: POT PHOSPHATE MONOBASIC W/ SOD TAB PO SCH (09:20)
--- NOTE | 2020-12-10 12:17 | Hospitalist Progress Note ---
Date of Service December 10, 2020 Assessment & Plan (1) Altered mental status: (2) Acute metabolic encephalopathy: (3) Aspiration into airway: (4) Vomiting: (5) Elevated lactic acid level: (6) Sepsis: Plan: Based on history provided by ER physician with report of vomiting episodes during dermatological procedure, onset of altered mental status afterwards; patient likely aspirated into the airway. Patient met SIRS criteria with leukocytosis, tachypnea, elevated lactate, initial hypotension, acute kidney injury. Hence, severe sepsis likely secondary to aspiration into the airway. Chest x-ray did not show any obvious opacities.However CT abdomen pelvis does show trace pleural effusion with bibasilar groundglass and consolidative opacities. Patient altered mental status is likely acute metabolic encephalopathy likely to due to sepsis +/- anesthetic meds from procedure. CT head did not show any acute intracranial hemorrhage or mass-effect but reported equivocal 2.4 cm hypodensity within the right frontal lobe. No prior to compare. Got 30 cc/kg IV fluids in ER. Elevated lactate on admission, improved Leukocytosis resolved Was initially on zosyn and vanc Blood culture 1 of 2 growing staph. Likely contaminant. Antibiotics deescalated to Augmentin Patient's altered mental status, resolved. Patient is back to baseline mental status. Initially he did not do very well with dysphagia screen. Had PASSPORT SUPPORT MANAGER eval with video study which did not show any tracheal aspiration. Tolerating diet well. IV fluids were discontinued. Patient's home medication including amlodipine, lisinopril, simvastatin, tamsulosin, finasteride were resumed p.o. BP elevated this morning prior to getting a.m. meds. Will monitor. Hold home Xarelto for now in view of planned surgery tomorrow. CT head on admission reported a 2.4cm hypodensity (no prior CT to compare). Radiologist recommended repeat CT scan which did not show any acute or subacute infarcts. Budget Examiner Dr Gia Macdonald recommended evaluation by plastic surgery to determine viability of flap at this fascial surgical site. Evaluation by plastic surgeon, Dr. Miranda appreciated. Plan for OR on tomorrow for right facial flap closure. We will keep patient n.p.o. past midnight. EKG on admission did show T wave inversions in inferolateral leads. Review of past EKG from 2014 confirmed that this is not new. Troponin trend was negative. Old Echo from 2008 reviewed on EPIC Echo done this admission shows moderate concentric LVH, apical wall motion abnormality, no regional wall motion abnormalities detected, EF of 60 to 65% Normocytic anemia-Hemoglobin was 9.9 on admission and dropped to the 7s has been stable since. Drop likely due to IV fluid resuscitation. Patient is DNR per POLST. I contacted patient's POA Michelle [phone] and updated her on the plans. (7) Acute renal failure superimposed on chronic kidney disease: Plan: Creatinine is 1.34 (back to baseline of 1.4] Avoid nephrotoxins Electrolyte abnormalities from yesterday being repleted. Monitor. (8) Diabetes mellitus: Plan: Pharmacy on board for glycemic management Continue insulin regimen (9) DVT prophylaxis: Plan: Heparin subcu for DVT prophylaxis Xarelto on hold due to planned surgery Admission and Anticipated Discharge Date Admission Date: December 06, 2020 Subjective 80-year-old man with history of DM type II, proximal A. fib, hypertension, liver cirrhosis, rosacea, major depressive disorder, pacemaker in situ who was brought in from dermatology procedure for altered mental status. Being managed for sepsis, aspiration pneumonia/pneumonitis Patient seen and examined. Denied any complaints today Review of Systems Constitutional: no fever, no chills and no fatigue Eyes: no problem reported Ear, Nose, Mouth, Throat: no problem reported Respiratory: no cough and no dyspnea Cardiovascular: no chest pain, no dyspnea, no dyspnea on exertion and no palpitations Gastrointestinal: no abdominal pain, no nausea and no vomiting Genitourinary: no dysuria or no urinary frequency Musculoskeletal: no problem reported Neurologic: no dizziness, no headache(s) and no confusion Psychiatric: no depression and no anxiety Physical Exam Constitutional: + well hydrated; no acute distress ENMT: external ear and nose normal, oropharynx normal Respiratory: normal respiratory effort; no respiratory distress Cardiovascular: Rate/Rhythm: regular rate and regular rhythm S1 S2 Gastrointestinal (Abdomen): normal bowel sounds, soft, nontender, no hepatosplenomegaly Musculoskeletal: 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 Neurologic: PERRL, EOMI, accommodation nl, no face palsy, no dysarthria Psychiatric: Orientation: alert, oriented to person, oriented to place and cooperative Genitourinary: no CVA tenderness Results & Data Results & Data ([facility]) Vital Signs (Past 12 Hours) Vital Signs Temp Pulse Resp BP Pulse Ox 12/10/20 07:35 36.7 C 65 20 182/65 H 95 12/10/20 04:42 37.2 C 60 22 163/62 H 93 Laboratory Results Abnormal lab results 12/09/20 12/09/20 12/10/20 Range/Units 16:22 20:31 05:46 RBC (4.7-6.1) M/uL Hgb (14.0-18.0) g/dL Hct (42-52) % RDW Coeff of Elizabeth (11.5-14.5) % Absolute Nucleated RBC (0-0) K/uL Chloride 114 H (98-107) mmol/L Carbon Dioxide 20 L (21-32) mmol/L BUN 20 H (7-18) mg/dl Glucose 148 H (70-99) mg/dl POC Glucose 122 H 167 H (70-99) mg/dl Calcium 7.6 L (8.5-10.1) mg/dl Magnesium 2.6 H (1.8-2.4) mg/dl 12/10/20 12/10/20 12/10/20 Range/Units 05:46 07:16 11:32 RBC 2.66 L (4.7-6.1) M/uL Hgb 7.2 L (14.0-18.0) g/dL Hct 21.4 L (42-52) % RDW Coeff of Elizabeth 14.9 H (11.5-14.5) % Absolute Nucleated RBC 0.02 H (0-0) K/uL Chloride (98-107) mmol/L Carbon Dioxide (21-32) mmol/L BUN (7-18) mg/dl Glucose (70-99) mg/dl POC Glucose 157 H 172 H (70-99) mg/dl Calcium (8.5-10.1) mg/dl Magnesium (1.8-2.4) mg/dl
--- NOTE | 2020-12-10 14:08 | Pharmacy Report ---
Pharmacy Glycemic Short Note 2 - Date of Service December 10, 2020 - Glycemic Short BSG Results (Last 24 hours): 12/09/20 12/09/20 12/10/20 16:22 20:31 05:46 Glucose 148 H POC Glucose 122 H 167 H 12/10/20 12/10/20 07:16 11:32 Glucose POC Glucose 157 H 172 H OUTPATIENT ANTIDIABETIC REGIMEN: * Basaglar 58 units SC HS * HbA1c = 8.2% (12/07/20) ASSESSMENT: 12/10: * Bernardo received 16 units of insulin yesterday (15 units basal + 1 unit bolus) * BSGs well controlled: [phone] mg/dL * Fasting BSG increased slightly to 157 mg/dL today * Given patient will be NPO at midnight for surgery tomorrow and fact that patient hasn't eaten more than 10 g of CHO over the last 72 hours, will not adjust basal dosing today 12/08: * Lantus held last evening for BSG = 108 mg/dl and NPO * No basal insulin given at all yesterday * BSGs in goal range today and patient is still NPO. Concern for rebound hyperglycemia without any basal on board despite NPO status. Patient takes large doses of basal insulin as an outpatient. Will further lower basal insulin for this evening since minimal insulin required while NPO. 12/07: * Bernardo's glycemic control improved greatly overnight. Respiratory status is improving. Scr is trending back to baseline. * He received a reduced dose of Lantus last evening for NPO status. Fasting BSG of 176 mg/dL this morning is above goal. No other fasting value to compare this to. Will enter a Lantus dose per scale until we have a better idea of what his inpatient insulin needs are. Patient will likely require less basal insulin while admitted due to the addition of bolus insulin to regimen (on basal only at home). * Post prandial BSGs are improved. Will slightly tighten correction factor and leave carb ratio as is. Change to q6h checks. PLAN FOR INPATIENT GLYCEMIC CONTROL: * Basal insulin * Lantus SC per scale HS: * 8 units for BSG 100 mg/dL or less * 15 units for BSG greater than 100 mg/dL * Bolus insulin * NovoLog per scale q6h * Goal Range: Low 110 mg/dL - High 150 mg/dL * Correction Factor: 20 mg/dL/unit * Nutritional / Prandial insulin per carb ratio of 1 unit per 8 grams CHO consumed PLAN FOR DISCHARGE: * HbA1c of 8.2% is above the goal of less than 8% based on this patient's age and comorbidities. * May require increase in Lantus dosing vs bolus insulin upon discharge
[2020-12-10] MEDS ORDERED: lisinopril 5 MG TAB PO ONE (17:12)
[2020-12-10] MEDS: AMOXICILLIN/CLAVULANATE 875 MG TAB PO SCH (18:03)
--- NOTE | 2020-12-10 19:19 | Oral/Maxillofacial Progress Nt ---
Date of Service December 10, 2020 I will be planning the suturing of the facial flap on Dec 11 in the OR. Medical clearance was reviewed and we are now ready fo rthe procedure. The POA is Cadigo his REMIGIO agent is Michelle [phone] I called Michelle at 7 pm Dec.10 and reviewed that I will be doing the suturing of the flap tomorrow in the OR with general Anesthesia. I discussed the risks=bleeding, infection, loss of flap, flap breakdown, scaring, need for secondary healing on upper aspect of the flap, revision, scaring lateral eyelid right side. Michelle was well aware of all the associated risks as they were well briefed by the dermatology office (Dr Macdonald). Michelle on behalf of [employer] gave their consent for the procedure tomorrow. I will complete the standard OR consent in the Am and the nursing staff will witness the consent as per protocol. Plan OR with GA December 11 2020. Michelle --[employer]----[phone] Assessment & Plan Admission and Anticipated Discharge Date Admission Date: December 06, 2020 Results & Data ([facility]) Vital Signs (Past 12 Hours) Vital Signs Temp Pulse Resp BP Pulse Ox 12/10/20 15:30 37.6 C H 66 20 177/68 H 90 12/10/20 12:24 37.4 C 62 20 167/67 H 91 12/10/20 07:35 36.7 C 65 20 182/65 H 95 PG Care Time/CCT Total # of Minutes Spent Total Time Spent with Patient: Total time spent is greater than 50% in coordination of care (as documented) at patient's floor/unit and/or counseling patient: Coding Level of Care Code None
[2020-12-10] MEDS: SIMVASTATIN 20 MG TAB PO SCH (20:38)
[2020-12-10] MEDS: TAMSULOSIN HCL 0.4 MG CAP PO SCH (20:38)
[2020-12-10] MEDS: INSULIN GLARGINE SOLOSTAR 100 UNITS/ML 3 ML PEN SQ SCH (20:56)
[2020-12-11] MEDS ORDERED: VANCOMYCIN TROUGH ONE (04:30)
[2020-12-11] MEDS: AMOXICILLIN/CLAVULANATE 875 MG TAB PO SCH ×2 (06:07→16:39)
[2020-12-11] MEDS: HEPARIN SOD 5,000 UNIT/0.5 ML VIAL SQ SCH ×3 (06:07→20:43)
[2020-12-11 06:20] LABS: Hematocrit (blood only) 23.2 % (42-52); Hemoglobin 7.7 g/dL (14.0-18.0); Mean Corpuscular Hemoglobin 26.7 pg (25-34); Mean Corpuscular Hgb Conc 33.2 g/dL (32-36); Mean Corpuscular Volume 80.6 fL (80-100); Mean Platelet Volume 9.2 fL (7.4-10.4); Nucleated RBC # (auto) 0.03 K/uL (0-0); Nucleated RBC % (auto) 0.3 %; Platelet Count 189 K/uL (130-400); RDW Coefficient of Variation 14.8 % (11.5-14.5); RDW Standard Deviation 43.9 fL (36.4-46.3); Red Blood Count 2.88 M/uL (4.7-6.1)
[2020-12-11 06:53] LABS: Calcium 7.9 mg/dl (8.5-10.1); Creatinine Clr Calc Pharmacy 46.6 ml/min; Est GFR (African American) 54.4 ml/min; Magnesium 2.5 mg/dl (1.8-2.4); Potassium 3.7 mmol/L (3.5-5.1)
[2020-12-11] MEDS: INSULIN ASPART 100 UNITS/ML 3 ML PEN SC SCH ×4 (07:10→20:40)
[2020-12-11] MEDS ORDERED: hydrALAZINE HCL 20 MG/ML VIAL IV STA (07:38)
[2020-12-11] MEDS ORDERED: DEXAMETHASONE SOD INJ 4 MG/ML VIAL ONE (08:18)
[2020-12-11] MEDS ORDERED: ONDANSETRON INJ 2 MG/ML 2 ML VIAL ONE (08:18)
[2020-12-11] MEDS ORDERED: PROPOFOL IV EMULSION 10 MG/ML 20 ML VIAL IV ONE ×2 (08:18→09:41)
[2020-12-11] MEDS ORDERED: LIDOCAINE 2% 2 ML VIAL/AMP(20MG/ML) INFIL ONE (08:18)
--- NOTE | 2020-12-11 08:18 | History & Physical Bridge Note ---
Date of Service December 11, 2020 History & Physical Bridge Note I have examined the patient, reviewed the History & Physical and in the interval since the performance of the History & Physical I have noted the following changes of clinical significance: no changes noted. Obtained consent with nursing staff and [facility] (Michelle) We will plan flap closure OK for procedure today
[2020-12-11] MEDS ORDERED: fentaNYL citrate 100 MCG/2 ML VIAL ONE (08:19)
[2020-12-11] MEDS ORDERED: EPINEPHrine INJ 1 MG/ML AMP ONE (08:37)
[2020-12-11] MEDS ORDERED: BUPIVACAINE 0.5 % 5 MG/1 ML MPF 30ML VIAL ONE (08:37)
[2020-12-11] MEDS ORDERED: STERILE IRRIGATING OPTH SOLUTION (BSS) 15ML ONE (08:37)
[2020-12-11] MEDS ORDERED: PROMETHAZINE HCL 6.25 MG in SODIUM CHLORIDE 0.9% 50 ML IV PRN (08:43)
[2020-12-11] MEDS ORDERED: ATROPINE SULFATE 0.1 MG/ML 10ML SYR IV PRN (08:43)
[2020-12-11] MEDS ORDERED: ONDANSETRON INJ 2 MG/ML 2 ML VIAL IV PRN (08:43)
[2020-12-11] MEDS ORDERED: fentaNYL citrate 100 MCG/2 ML VIAL IV PRN (08:43)
[2020-12-11] MEDS ORDERED: ePHEDrine sulfate 50 MG/ML AMP IV PRN (08:43)
--- NOTE | 2020-12-11 08:43 | Anesthesiology Consultation ---
Date of Service December 11, 2020 Assessment & Plan Chart Review Chart Review: Acceptable Risk for Surgery and Patient NOT seen in Pre Admission Testing Consults Requested none ASA ASA4 Proposed Anesthesia Anesthesia Type: General Risk / Benefits Reviewed With: PT / POA / Parent / Guardian, Accepts Plan and Informed Consent Obtained History Surgery Operation Date: 12/11/20 08:45 Proposed Procedures p Right Facial Flap Closure - Ronny Miranda, DMD Height/Weight Height: 5 ft 9 in Weight: 86 kg Allergies Allergy/AdvReac Type Severity Reaction Status Date / Time No Known Allergies Allergy Mild Verified 12/06/20 14:34 Medications Home Medications Medication Instructions Recorded Confirmed Last Taken loratadine 10 mg tablet 10 mg PO DAILY 12/15/19 12/06/20 12/06/20 08:00 methenamine hippurate 1 gram tablet 1 g PO BID 12/15/19 12/06/20 12/06/20 08:00 mirtazapine 7.5 mg tablet 7.5 mg HS 12/15/19 12/06/20 12/05/20 20:00 rivaroxaban 15 mg tablet (Xarelto) 15 mg PO PM 12/15/19 12/06/20 12/05/20 17:00 tamsulosin 0.4 mg capsule 0.4 mg PO BID 12/15/19 12/06/20 12/06/20 08:00 acetaminophen 325 mg tablet 650 mg PO Q6 PRN MDD 3g 12/06/20 12/06/20 Unknown amlodipine 10 mg tablet 10 mg PO DAILY 12/06/20 12/06/20 12/06/20 08:00 aspirin 81 mg chewable tablet 81 mg PO DAILY 12/06/20 12/06/20 12/06/20 08:00 cholecalciferol (vitamin D3) 25 50 mcg PO DAILY 12/06/20 12/06/20 12/06/20 08:00 mcg (1,000 unit) tablet (Vitamin D3) docusate sodium 100 mg capsule 200 mg PO BID 12/06/20 12/06/20 12/06/20 08:00 (Colace) finasteride 5 mg tablet 5 mg PO DAILY 12/06/20 12/06/20 12/06/20 08:00 gabapentin 100 mg capsule 100 mg PO TID 12/06/20 12/06/20 12/06/20 08:00 insulin glargine 100 unit/mL (3 58 unit SUBCUT HS 12/06/20 12/06/20 12/05/20 20:00 mL) subcutaneous pen (Basaglar KwikPen U-100 Insulin) lisinopril 5 mg tablet 5 mg PO DAILY 12/06/20 12/06/20 12/06/20 08:00 omeprazole 40 mg capsule,delayed 40 mg PO BID 12/06/20 12/06/20 12/06/20 07:00 release polyethylene glycol 3350 17 17 g PO Q OTHER DAY 12/06/20 12/06/20 12/04/20 08:00 gram/dose oral powder (ClearLax) sennosides 8.6 mg tablet (Senokot) 17.2 mg PO BID 12/06/20 12/06/20 12/06/20 08:00 simvastatin 20 mg tablet 20 mg PO HS 12/06/20 12/06/20 12/05/20 20:00 Active Medications Generic Name Dose Route Start Last Admin Trade Name Tyroneq PRN Reason Stop Dose Admin Amlodipine Besylate 10 mg 12/10/20 09:00 12/10/20 09:20 Amlodipine Besylate 5 Mg Tab PO 01/09/21 08:59 10 mg QAM JOSE ARMANDO Administration Amoxicillin/Clavulanate Potassium 1 tab 12/10/20 17:00 12/11/20 06:07 Amoxicillin/Clavulanate 875 Mg Tab PO 12/12/20 20:00 1 tab Q12H JOSE ARMANDO Administration Aspirin 81 mg 12/10/20 09:00 12/10/20 09:20 Aspirin 81 Mg Ectab PO 01/09/21 08:59 81 mg QAM JOSE ARMANDO Administration Finasteride 5 mg 12/10/20 09:00 12/10/20 09:20 Finasteride 5 Mg Tab PO 01/09/21 08:59 5 mg QAM JOSE ARMANDO Administration Heparin Sodium (Porcine) 5,000 units 12/06/20 22:00 12/11/20 06:07 Heparin Sod 5,000 Unit/0.5 Ml Vial SQ 01/05/21 21:59 5,000 units Q8 JOSE ARMANDO Administration Insulin Aspart 0 units 12/09/20 07:30 12/11/20 07:10 Insulin Aspart 100 Units/Ml 3 Ml Pen SC 01/08/21 07:29 Not Given ACHS JOSE ARMANDO Protocol Insulin Glargine 0 units 12/07/20 21:00 12/10/20 20:56 Insulin Glargine Solostar 100 Units/Ml 3 Ml Pen SQ 01/06/21 20:59 15 units HS JOSE ARMANDO Administration Protocol Simvastatin 20 mg 12/09/20 21:00 12/10/20 20:38 Simvastatin 20 Mg Tab PO 01/08/21 20:59 20 mg PM JOSE ARMANDO Administration Tamsulosin HCl 0.4 mg 12/09/20 21:00 12/10/20 20:38 Tamsulosin Hcl 0.4 Mg Cap PO 01/08/21 20:59 0.4 mg HS JOSE ARMANDO Administration NPO Date Last Intake of Fluids: 12/10/20 Time Last Intake of Fluids: 22:00 Date Last Intake of Solids: 12/10/20 Time Last Intake of Solids: 23:00 Past Medical History Medical History Diabetes mellitus Exercise / Class Metabolic Activity II 4-5 Yardwork/Stairs/Walk up hill Past Anesthesia History No Hx of Anesthesia Complications and No Family Hx of Anesthesia Complications History of PONV No Hx of PONV and No Hx of Motion Sickness Social History Smoking Status: Unknown if ever smoked substance use type: does not use Physical Exam Vital Signs Last Vital Signs Temp 37.8 C H 12/11/20 08:09 Pulse 70 12/11/20 08:09 Resp 20 12/11/20 08:09 BP 178/74 H 12/11/20 08:09 Pulse Ox 91 12/11/20 08:09 ENMT Mouth: no dentition abnormality Thyromental Distance: > or= 3.5 Finger Breadths Mallampati Class: II Neck normal visual inspection Respiratory normal respiratory effort Auscultation: + diminished lung sounds (coarse on L>R) Cardiovascular Rate/Rhythm: regular rate and regular rhythm Skin + lesion (R facial) Psychiatric Orientation: alert Testing Laboratory Results 12/11/20 05:57 12/11/20 05:57 PT 11.4 Seconds (9.0-12.0) 12/06/20 14:24 INR 1.1 (0.9-1.1) 12/06/20 14:24 APTT 24.8 Seconds (21.0-31.0) 12/06/20 14:24 Hemoglobin A1c 8.2 % (4.5-5.6) H 12/07/20 07:13 Urine Color Yellow 12/06/20 15:13 Urine Appearance Clear (Clear) 12/06/20 15:13 Urine pH 6.5 (4.5-7.5) 12/06/20 15:13 Ur Specific [place] 1.017 (1.000-1.030) 12/06/20 15:13 Urine Protein Negative (Negative) 12/06/20 15:13 Urine Glucose (UA) 2+ (Negative) H 12/06/20 15:13 Urine Ketones Negative (Negative) 12/06/20 15:13 Urine Nitrite Negative (Negative) 12/06/20 15:13 Ur Leukocyte Esterase 1+ (Negative) H 12/06/20 15:13 Urine WBC (Auto) 10-30 /hpf (0-5) H 12/06/20 15:13 Urine RBC (Auto) 0-4 /hpf (0-4) 12/06/20 15:13 U Hyaline Cast (Auto) 1-5 /lpf (0-5) 12/06/20 15:13 U Epithel Cells (Auto) >30 /lpf (0-5) H 12/06/20 15:13 Urine Bacteria (Auto) Negative (Negative) 12/06/20 15:13 12/06/20 14:35 Aerobic Blood Culture - Final Blood Micrococcus species Anaerobic Blood Culture - Final 12/09/20 11:28 Aerobic Blood Culture - Preliminary Blood No growth in Aerobic bottle after 24 hours. Anaerobic Blood Culture - Preliminary No growth in Anaerobic bottle after 24 hours. 12/09/20 11:36 Aerobic Blood Culture - Preliminary Blood No growth in Aerobic bottle after 24 hours. Anaerobic Blood Culture - Preliminary No growth in Anaerobic bottle after 24 hours. 12/06/20 14:24 Aerobic Blood Culture - Preliminary Blood No growth in Aerobic bottle after 48 hours. Anaerobic Blood Culture - Preliminary No growth in Anaerobic bottle after 48 hours. 12/06/20 15:13 Urine Culture - Final Urine,Straight Cath No growth - less than 1,000 colonies/mL. 12/11/20 06:11 POC Glucose 133 H
[2020-12-11] MEDS ORDERED: LIDOCAINE/EPINEPHRINE 1% 20 ML VIAL ONE (09:04)
[2020-12-11] MEDS ORDERED: SUCCINYLCHOLINE CHLORIDE 20 MG/ML 10 ML VIAL IV ONE (09:41)
[2020-12-11] MEDS ORDERED: PHENYLEPHRINE 100MCG/ML 5ML SYR ONE (09:48)
--- NOTE | 2020-12-11 11:08 | Post Operative Brief Note ---
PG Immediate Post Op with CF Date of Surgery December 11, 2020 Pre & Post Diagnosis Operation Date: 12/11/20 08:45 Pre-Op Diagnosis: Status Post Microscopically Oriented Histographic Surgery Excision Right Face/ Unattached Rotational Flap Post-Op Diagnosis: Closure of Microscopically Oriented Histographic Surgery Right Face/ same as above I identified the patient and participated in the time-out.: Yes Procedure Operation Date: 12/11/20 08:45 Actual Procedures p Right Facial Flap Closure(Right) - Ronny Miranda DMD Surgeon Ronny Miranda DMD Casing Worker none Estimated Blood Loss 10 Findings Consistent with Post-Op Diagnosis raised but not sutured flap right facial area Specimens Specimen Description: none per surgeon Drains [place] Drain (1/4 inch meghan drain) Anesthesia Type General Complications none
--- NOTE | 2020-12-11 11:44 | Anesthesiology Progress Note ---
Date of Service December 11, 2020 Anesthesia Post Procedure Vital Signs Vital Signs: Temp Pulse Pulse Resp BP Pulse Ox 12/11/20 11:20 36.6 C 70 23 153/63 H 97 12/11/20 11:10 71 24 157/61 H 95 12/11/20 11:00 77 18 160/61 H 96 12/11/20 10:51 36.8 C 82 18 154/50 H 95 12/11/20 08:09 37.8 C H 70 20 178/74 H 91 12/11/20 08:00 69 12/11/20 07:33 67 20 183/68 H 12/11/20 04:12 37.2 C 62 18 170/68 H 90 12/11/20 00:09 65 12/10/20 23:22 36.4 C L 71 18 173/69 H 91 12/10/20 20:05 37.9 C H 70 18 174/69 H 93 12/10/20 15:30 37.6 C H 66 20 177/68 H 90 12/10/20 12:24 37.4 C 62 20 167/67 H 91 Pain Intensity Abdomen: Pain Intensity: 5 Right Face: Pain Intensity: 2 Transfer of Care Handoff Completed per policy Notes Mental Status: alert / awake / arousable Patient Amnestic to Procedure: Yes Nausea / Vomiting: adequately controlled Pain: adequately controlled Airway Patency, RR, SpO2: stable & adequate BP & HR: stable & adequate Hydration State: stable & adequate Anesthetic Complications: no major complications apparent
[2020-12-11] MEDS: ASPIRIN 81 MG ECTAB PO SCH (11:56)
[2020-12-11] MEDS: amLODIPine BESYLATE 5 MG TAB PO SCH (11:56)
[2020-12-11] MEDS: FINASTERIDE 5 MG TAB PO SCH (11:56)
[2020-12-11] MEDS: lisinopril 10 MG TAB PO SCH (12:40)
[2020-12-11] MEDS ORDERED: ePHEDrine sulfate 50 MG/ML SYR ONE (12:41)
--- NOTE | 2020-12-11 16:41 | Hospitalist Progress Note ---
Date of Service December 11, 2020 Assessment & Plan (1) Altered mental status: (2) Acute metabolic encephalopathy: (3) Aspiration into airway: (4) Vomiting: (5) Elevated lactic acid level: (6) Sepsis: Plan: Based on history provided by ER physician with report of vomiting episodes during dermatological procedure, onset of altered mental status afterwards; patient likely aspirated into the airway. Patient met SIRS criteria with leukocytosis, tachypnea, elevated lactate, initial hypotension, acute kidney injury. Hence, severe sepsis likely secondary to aspiration into the airway. Chest x-ray did not show any obvious opacities.However CT abdomen pelvis does show trace pleural effusion with bibasilar groundglass and consolidative opacities. Patient altered mental status is likely acute metabolic encephalopathy likely to due to sepsis +/- anesthetic meds from procedure. CT head did not show any acute intracranial hemorrhage or mass-effect but reported equivocal 2.4 cm hypodensity within the right frontal lobe. No prior to compare. Got 30 cc/kg IV fluids in ER. Elevated lactate on admission, improved Leukocytosis resolved Was initially on zosyn and vanc Blood culture 1 of 4 growing staph. Likely contaminant. Antibiotics deescalated to Augmentin. Will complete antibiotics tomorrow CT head on admission reported a 2.4cm hypodensity (no prior CT to compare). Radiologist recommended repeat CT scan which did not show any acute or subacute infarcts. Patient's altered mental status, resolved. Patient is back to baseline mental status. Initially he did not do very well with dysphagia screen. Had CBX OPERATOR eval with video study which did not show any tracheal aspiration. Tolerating diet well. EKG on admission did show T wave inversions in inferolateral leads. Review of past EKG from 2014 confirmed that this is not new. Troponin trend was negative. Old Echo from 2008 reviewed on EPIC Echo done this admission shows moderate concentric LVH, apical wall motion abnormality, no regional wall motion abnormalities detected, EF of 60 to 65% Ui Ux Engineer Dr Gia Macdonald recommended evaluation by plastic surgery to evaluate flap at this facial surgical site that was not completed due to aspiration event Patient had surgery (Right Facial Flap Closure(Right) ) today Continue home amlodipine, lisinopril, simvastatin, tamsulosin, finasteride. Monitor BP Xarelto was held for surgery today. Plan to resume tomorrow Normocytic anemia-Hemoglobin was 9.9 on admission and dropped to the 7s has been stable since. Drop likely due to IV fluid resuscitation. Patient is DNR per POLST. Patient's POA Michelle [phone] and updated her on the plans. (7) Acute renal failure superimposed on chronic kidney disease: Plan: Creatinine is 1.42 (back to baseline of 1.4] Avoid nephrotoxins Electrolyte abnormalities from yesterday being repleted. Monitor. (8) Diabetes mellitus: Plan: Pharmacy on board for glycemic management Continue insulin regimen (9) DVT prophylaxis: Plan: Plan to resume xarelto tomorrow Admission and Anticipated Discharge Date Admission Date: December 06, 2020 Subjective 80-year-old man with history of DM type II, proximal A. fib, hypertension, liver cirrhosis, rosacea, major depressive disorder, pacemaker in situ who was brought in from dermatology procedure for altered mental status. Being managed for sepsis, aspiration pneumonia/pneumonitis Patient seen and examined after return from OR this afternoon Denied any complaints today Review of Systems Constitutional: no fever, no chills and no fatigue Eyes: no problem reported Ear, Nose, Mouth, Throat: no problem reported Respiratory: no cough and no dyspnea Cardiovascular: no chest pain, no dyspnea, no dyspnea on exertion and no palpitations Gastrointestinal: no abdominal pain, no nausea and no vomiting Genitourinary: no dysuria or no urinary frequency Musculoskeletal: no problem reported Neurologic: no dizziness, no headache(s) and no confusion Psychiatric: no depression and no anxiety Physical Exam Constitutional: + well hydrated; no acute distress ENMT: external ear and nose normal, oropharynx normal Respiratory: normal respiratory effort; no respiratory distress Cardiovascular: Rate/Rhythm: regular rate and regular rhythm Gastrointestinal (Abdomen): normal bowel sounds, soft, nontender, no hepatosplenomegaly Musculoskeletal: 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 Skin: Clean dressing over right face Neurologic: PERRL, EOMI, accommodation nl, no face palsy, no dysarthria Psychiatric: Orientation: alert, oriented to person, oriented to place and cooperative Genitourinary: no CVA tenderness Results & Data Results & Data ([facility]) Vital Signs (Past 12 Hours) Vital Signs Temp Pulse Pulse Resp BP Pulse Ox 12/11/20 16:10 36.5 C 72 20 148/69 H 91 12/11/20 14:22 73 20 174/65 H 92 12/11/20 13:24 36.8 C 68 16 165/63 H 93 12/11/20 12:25 37.0 C 72 20 155/64 H 92 12/11/20 12:05 37.1 C 70 18 168/68 H 91 12/11/20 12:00 37.1 C 73 18 174/68 H 93 12/11/20 11:20 36.6 C 70 23 153/63 H 97 12/11/20 11:10 71 24 157/61 H 95 12/11/20 11:00 77 18 160/61 H 96 12/11/20 10:51 36.8 C 82 18 154/50 H 95 12/11/20 08:09 37.8 C H 70 20 178/74 H 91 12/11/20 08:00 69 12/11/20 07:33 67 20 183/68 H Laboratory Results Abnormal lab results 12/10/20 12/11/20 12/11/20 Range/Units 20:39 05:57 05:57 RBC 2.88 L (4.7-6.1) M/uL Hgb 7.7 L (14.0-18.0) g/dL Hct 23.2 L (42-52) % RDW Coeff of Elizabeth 14.8 H (11.5-14.5) % Absolute Nucleated RBC 0.03 H (0-0) K/uL Chloride 113 H (98-107) mmol/L BUN 20 H (7-18) mg/dl Creatinine 1.42 H (0.6-1.4) mg/dl Glucose 123 H (70-99) mg/dl POC Glucose 152 H (70-99) mg/dl Calcium 7.9 L (8.5-10.1) mg/dl Magnesium 2.5 H (1.8-2.4) mg/dl 12/11/20 12/11/20 12/11/20 Range/Units 06:11 10:52 12:05 RBC (4.7-6.1) M/uL Hgb (14.0-18.0) g/dL Hct (42-52) % RDW Coeff of Elizabeth (11.5-14.5) % Absolute Nucleated RBC (0-0) K/uL Chloride (98-107) mmol/L BUN (7-18) mg/dl Creatinine (0.6-1.4) mg/dl Glucose (70-99) mg/dl POC Glucose 133 H 152 H 170 H (70-99) mg/dl Calcium (8.5-10.1) mg/dl Magnesium (1.8-2.4) mg/dl
[2020-12-11] MEDS: INSULIN GLARGINE SOLOSTAR 100 UNITS/ML 3 ML PEN SQ SCH (20:40)
[2020-12-11] MEDS: TAMSULOSIN HCL 0.4 MG CAP PO SCH (20:43)
[2020-12-11] MEDS: SIMVASTATIN 20 MG TAB PO SCH (20:43)
[2020-12-12] MEDS: HEPARIN SOD 5,000 UNIT/0.5 ML VIAL SQ SCH (06:06)
[2020-12-12] MEDS: AMOXICILLIN/CLAVULANATE 875 MG TAB PO SCH ×2 (06:06→16:46)
[2020-12-12 07:00] LABS: Hematocrit (blood only) 22.1 % (42-52); Hemoglobin 7.3 g/dL (14.0-18.0); Mean Corpuscular Hemoglobin 26.9 pg (25-34); Mean Corpuscular Volume 81.5 fL (80-100); Mean Platelet Volume 9.2 fL (7.4-10.4); Nucleated RBC # (auto) 0.03 K/uL (0-0); Nucleated RBC % (auto) 0.4 %; Platelet Count 190 K/uL (130-400); RDW Coefficient of Variation 15.3 % (11.5-14.5); RDW Standard Deviation 45.3 fL (36.4-46.3); Red Blood Count 2.71 M/uL (4.7-6.1); White Blood Count 7.86 K/uL (4.8-10.8)
[2020-12-12 07:34] LABS: BUN Creatinine Ratio 16.9 (10-20); Creatinine Clr Calc Pharmacy 50.2 ml/min; Est GFR (Non-African American) 51.8 ml/min; Magnesium 2.4 mg/dl (1.8-2.4); Potassium 3.5 mmol/L (3.5-5.1)
[2020-12-12] MEDS: amLODIPine BESYLATE 5 MG TAB PO SCH (07:37)
[2020-12-12] MEDS: FINASTERIDE 5 MG TAB PO SCH (07:37)
[2020-12-12] MEDS: lisinopril 10 MG TAB PO SCH (07:37)
[2020-12-12] MEDS: ASPIRIN 81 MG ECTAB PO SCH (07:38)
[2020-12-12 07:39] LABS: Phosphorus 2.3 mg/dl (2.5-4.9)
--- NOTE | 2020-12-12 08:09 | Oral/Maxillofacial Progress Nt ---
Date of Service December 12, 2020---POST OP NOTE: 24 hours post op The patient doing well post operatively, response is excellent Flap looks great, very healthy and pink, minimal swelling/pain Tissue tone =healthy normal tissue--good blood flow Upper site still packed and will heal by secondary intent Sutures in place, drain functioning very well I changed the dressings. And will do so tomorrow. Overall: Excellent response from surgery yesterday I will evaluate tomorrow. I would expect he could be D/C soon. I would like to discuss his wound management with the personnel at his care facility prior to D/C Assessment & Plan Admission and Anticipated Discharge Date Admission Date: December 06, 2020 Results & Data ([facility]) Vital Signs (Past 12 Hours) Vital Signs Temp Pulse Pulse Resp BP BP Pulse Ox 12/12/20 04:01 37.6 C H 71 19 171/63 H 91 12/12/20 00:24 68 12/11/20 23:36 37.0 C 69 18 155/67 H 90 PG Care Time/CCT Total # of Minutes Spent Total Time Spent with Patient: Total time spent is greater than 50% in coor dination of care (as documented) at patient's floor/unit and/or counseling patient: Coding Level of Care Code 30075 Subseq Hosp Care Lvl 1
[2020-12-12] MEDS: INSULIN ASPART 100 UNITS/ML 3 ML PEN SC SCH ×4 (09:19→21:13)
--- NOTE | 2020-12-12 11:17 | Hospitalist Progress Note ---
Date of Service December 12, 2020 Assessment & Plan (1) Altered mental status: (2) Acute metabolic encephalopathy: (3) Aspiration into airway: (4) Vomiting: (5) Elevated lactic acid level: (6) Sepsis: Plan: Based on history provided by ER physician with report of vomiting episodes during dermatological procedure, onset of altered mental status afterwards; patient likely aspirated into the airway. Patient met SIRS criteria with leukocytosis, tachypnea, elevated lactate, initial hypotension, acute kidney injury. Hence, severe sepsis likely secondary to aspiration into the airway. Chest x-ray did not show any obvious opacities.However CT abdomen pelvis does show trace pleural effusion with bibasilar groundglass and consolidative opacities. Patient altered mental status is likely acute metabolic encephalopathy likely to due to sepsis +/- anesthetic meds from procedure. CT head did not show any acute intracranial hemorrhage or mass-effect but reported equivocal 2.4 cm hypodensity within the right frontal lobe. No prior to compare. Got 30 cc/kg IV fluids in ER. Elevated lactate on admission, improved Leukocytosis resolved Was initially on zosyn and vanc Blood culture 1 of 4 growing staph. Likely contaminant. Antibiotics deescalated to Augmentin. Will complete antibiotics today CT head on admission reported a 2.4cm hypodensity (no prior CT to compare). Radiologist recommended repeat CT scan which did not show any acute or subacute infarcts. Patient's altered mental status, resolved. Patient is back to baseline mental status. Initially he did not do very well with dysphagia screen. Had ELECTRIC ACCOUNTING MACHINE OPERATOR eval with video study which did not show any tracheal aspiration. Tolerating diet well. EKG on admission did show T wave inversions in inferolateral leads. Review of past EKG from 2014 confirmed that this is not new. Troponin trend was negative. Old Echo from 2008 reviewed on EPIC Echo done this admission shows moderate concentric LVH, apical wall motion abnormality, no regional wall motion abnormalities detected, EF of 60 to 65% [facility] Well Logging Operator Mud Analysis Dr Gia Macdonald recommended evaluation by plastic surgery to evaluate flap at this facial surgical site that was not completed due to aspiration event. Patient had surgery (Right Facial Flap Closure(Right) ) yesterday 12/11/20 Doing very well post op Discussed with Dr Miranda. Ok to resume home xarelto Follow up with Dr Miranda about discussing wound management with personnel at his care facility prior to discharge Continue home amlodipine, lisinopril, simvastatin, tamsulosin, finasteride. Monitor BP BP has been poorly controlled. Lisinopril was increased to 10 mg. Monitor Normocytic anemia-Hemoglobin was 9.9 on admission and dropped to the 7s has been stable since. Drop likely due to IV fluid resuscitation. Patient is DNR per POLST. Patient's POA Michelle [phone] (7) Acute renal failure superimposed on chronic kidney disease: Plan: Creatinine is 1.31 (back to baseline of 1.4] Avoid nephrotoxins Electrolyte abnormalities from yesterday being repleted. Monitor. (8) Diabetes mellitus: Plan: Pharmacy on board for glycemic management Continue insulin regimen (9) DVT prophylaxis: Plan: Xarelto Admission and Anticipated Discharge Date Admission Date: December 06, 2020 Subjective 80-year-old man with history of DM type II, proximal A. fib, hypertension, liver cirrhosis, rosacea, major depressive disorder, pacemaker in situ who was brought in from dermatology procedure for altered mental status. Being managed for sepsis, aspiration pneumonia/pneumonitis Patient seen and examined Reports only mild abd discomfort this morning Denied any nausea, vomiting, diarrhea Denied any surgical site pain Review of Systems Constitutional: no fever, no chills and no fatigue Eyes: no problem reported Ear, Nose, Mouth, Throat: no problem reported Respiratory: no cough and no dyspnea Cardiovascular: no chest pain, no dyspnea, no dyspnea on exertion and no palpitations Gastrointestinal: no nausea and no vomiting Abdominal discomfort Genitourinary: no dysuria or no urinary frequency Musculoskeletal: no problem reported Neurologic: no dizziness, no headache(s) and no confusion Psychiatric: no depression and no anxiety Physical Exam Constitutional: + well hydrated; no acute distress ENMT: external ear and nose normal, oropharynx normal Respiratory: normal respiratory effort; no respiratory distress Cardiovascular: Rate/Rhythm: regular rate and regular rhythm S1 S2 Gastrointestinal (Abdomen): normal bowel sounds, soft, nontender, no hepatosplenomegaly Musculoskeletal: 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 Skin: Clean dressing of right facial surgical site Neurologic: PERRL, EOMI, accommodation nl, no face palsy, no dysarthria Psychiatric: Orientation: alert, oriented to person, oriented to place and cooperative Genitourinary: no CVA tenderness Results & Data Results & Data ([facility]) Vital Signs (Past 12 Hours) Vital Signs Temp Pulse Pulse Resp BP BP Pulse Ox 12/12/20 08:00 70 12/12/20 07:42 36.7 C 67 20 184/66 H 180/65 H 91 12/12/20 04:01 37.6 C H 71 19 171/63 H 91 12/12/20 00:24 68 12/11/20 23:36 37.0 C 69 18 155/67 H 90 Laboratory Results Abnormal lab results 12/11/20 12/11/20 12/12/20 Range/Units 16:34 20:35 06:31 RBC (4.7-6.1) M/uL Hgb (14.0-18.0) g/dL Hct (42-52) % RDW Coeff of Elizabeth (11.5-14.5) % Absolute Nucleated RBC (0-0) K/uL Chloride 115 H (98-107) mmol/L Anion Gap 2.0 L (3-11) BUN 22 H (7-18) mg/dl Glucose 144 H (70-99) mg/dl POC Glucose 149 H 164 H (70-99) mg/dl Calcium 8.0 L (8.5-10.1) mg/dl Phosphorus 2.3 L (2.5-4.9) mg/dl 12/12/20 12/12/20 12/12/20 Range/Units 06:31 07:13 11:05 RBC 2.71 L (4.7-6.1) M/uL Hgb 7.3 L (14.0-18.0) g/dL Hct 22.1 L (42-52) % RDW Coeff of Elizabeth 15.3 H (11.5-14.5) % Absolute Nucleated RBC 0.03 H (0-0) K/uL Chloride (98-107) mmol/L Anion Gap (3-11) BUN (7-18) mg/dl Glucose (70-99) mg/dl POC Glucose 166 H 160 H (70-99) mg/dl Calcium (8.5-10.1) mg/dl Phosphorus (2.5-4.9) mg/dl
[2020-12-12] MEDS: SIMVASTATIN 20 MG TAB PO SCH (21:09)
[2020-12-12] MEDS: TAMSULOSIN HCL 0.4 MG CAP PO SCH (21:09)
[2020-12-12] MEDS: RIVAROXABAN 15 MG TAB PO SCH (21:09)
[2020-12-12] MEDS: INSULIN GLARGINE SOLOSTAR 100 UNITS/ML 3 ML PEN SQ SCH (21:13)
[2020-12-13] MEDS: INSULIN ASPART 100 UNITS/ML 3 ML PEN SC SCH ×2 (09:00→13:12)
[2020-12-13 09:14] LABS: Hematocrit (blood only) 23.4 % (42-52); Hemoglobin 7.4 g/dL (14.0-18.0); Mean Corpuscular Hemoglobin 26.2 pg (25-34); Mean Corpuscular Hgb Conc 31.6 g/dL (32-36); Mean Platelet Volume 9.3 fL (7.4-10.4); Platelet Count 219 K/uL (130-400); RDW Coefficient of Variation 15.2 % (11.5-14.5); RDW Standard Deviation 45.7 fL (36.4-46.3); Red Blood Count 2.82 M/uL (4.7-6.1)
--- NOTE | 2020-12-13 09:19 | Oral/Maxillofacial Progress Nt ---
Date of Service December 13, 2020 POST OP NOTE: day # 2 The patient did very well post operatively, healing is excellent. Wound care is good, minimal swelling as expected. Tissue tone =healthy normal tissue I removed the drain and changed the dressings--wound were cleaned and dressing replaced. Sutures will need to be removed around Dec 21- I will need to discuss wound management with the nurse supervise at his facility once he is transferred. Overall: Excellent healing from recent facial surgery OK for discharge Assessment & Plan Admission and Anticipated Discharge Date Admission Date: December 06, 2020 Results & Data ([facility]) Vital Signs (Past 12 Hours) Vital Signs Temp Pulse Pulse Resp BP Pulse Ox 12/13/20 07:40 80 12/13/20 07:35 36.9 C 61 18 153/62 H 96 12/13/20 03:05 36.8 C 62 18 154/64 H 95 12/12/20 23:54 60 12/12/20 22:54 36.5 C 64 22 162/70 H 95 PG Care Time/CCT Total # of Minutes Spent Total Time Spent with Patient: Total time spent is greater than 50% in coordination of care (as documented) at patient's floor/unit and/or counseling patient: Coding Level of Care Code 46075 Subseq Hosp Care Lvl 1
[2020-12-13 09:34] LABS: Est GFR (African American) 58.4 ml/min; Est GFR (Non-African American) 50.4 ml/min; Potassium 4.3 mmol/L (3.5-5.1)
[2020-12-13 09:35] LABS: BUN Creatinine Ratio 19.3 (10-20); Creatinine Clr Calc Pharmacy 45.4 ml/min; Magnesium 2.2 mg/dl (1.8-2.4); Phosphorus 2.4 mg/dl (2.5-4.9)
[2020-12-13] MEDS: lisinopril 10 MG TAB PO SCH (09:55)
[2020-12-13] MEDS: FINASTERIDE 5 MG TAB PO SCH (09:55)
[2020-12-13] MEDS: ASPIRIN 81 MG ECTAB PO SCH (09:55)
[2020-12-13] MEDS: amLODIPine BESYLATE 5 MG TAB PO SCH (09:55)
[2020-12-13] MEDS ORDERED: POT PHOSPHATE MONOBASIC W/ SOD TAB PO ONE (14:04)
--- NOTE | 2020-12-13 14:07 | Discharge Summary ---
Date of Service December 13, 2020 Admission HPI Per Admitting Provider 80-year-old man with history of DM type II, proximal A. fib, hypertension, liver cirrhosis, rosacea, major depressive disorder, pacemaker in situ who was brought in from dermatology procedure for altered mental status. Patient is currently altered and not able to provide any history. Was able to tell me his name only History obtained from ER physician Who had spoken to patient's stone processing machine operator and home nurse. Patient was apparently at his baseline functional/mental status earlier today prior to going to his stone processing machine operator at [facility] dermatology clinic to have the Mohs procedure on his face and left hand. Patient was reported to have vomited in the middle of the procedure and then developed altered mental status with difficulty breathing. Patient was brought to the ER with his home nurse at bedside. At the time of my evaluation, home nurse was not available but according to the ER had reported that patient was DNR and would not want feeding tube, intubation or CPR but okay with antibiotics IV medication and fluids. Patient's polst form was also evaluated in the ER which confirmed that patient is DNR No other history could be obtained from the patient who is currently drowsy. Admission Exam Per Admitting Provider Constitutional:+ acute distress (tachypneic) and + altered mental status Patient has Band-Aid over right side of head and eye (stone processing machine operator procedure was reportedly interrupted and patient transported to the ER Eyes: Left eye _ PERRLRight eye could not be fully examined due to bandage ENMT: external ear and nose normal, oropharynx normal Respiratory: + respiratory distress (Tachypneic) On facemask Coarse breath sounds bilaterally and transmitted sounds Cardiovascular:regular rate and regular rhythm S1-S2 Left lower extremity pitting edema Gastrointestinal: normal bowel sounds, soft, nontender, no hepatosplenomegaly Musculoskeletal: 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 Was able to tell me his name but otherwise unable to answer any other questions. Does not follow simple commands. Limited neurological exam evaluation due to mental status. Moves extremities Principal Diagnosis (1) Altered mental status: (2) Acute metabolic encephalopathy: (3) Aspiration into airway: (4) Vomiting: (5) Elevated lactic acid level: (6) Sepsis: (7) Right Facial Flap Closure( Discharge Exam Constitutional: + well hydrated; no acute distress ENMT: external ear and nose normal, oropharynx normal Respiratory: normal respiratory effort; no respiratory distress Cardiovascular: Rate/Rhythm: regular rate and regular rhythm S1 S2 Gastrointestinal (Abdomen): normal bowel sounds, soft, nontender, no hepatosplenomegaly Musculoskeletal: Right AKA, Left foot amputation with edema of the left lower extremity Skin: right facial surgical site with suture in place, no redness or pus noted Neurologic: PERRL, EOMI, accommodation nl, no face palsy, no dysarthria Psychiatric: Orientation: alert, oriented to person, oriented to place and cooperative Genitourinary: no CVA tenderness Discharge Data Allergies Allergy/AdvReac Type Severity Reaction Status Date / Time No Known Allergies Allergy Mild Verified 12/06/20 14:34 Consultations 12/06/20 17:57 ED Decision to Admit Stat 12/06/20 19:04 Consult Jewelry Cutter Stat 12/07/20 19:07 Consult Plastic Surgery Routine Procedures Performed Operation Date: 12/11/20 08:45 Actual Procedures p Right Facial Flap Closure(Right) - Ronny Miranda DMD Ordered Studies 12/06/20 14:11 CT abd pelvis wo con Stat CT head/brain wo con Stat 12/08/20 13:15 FL video swallow Routine 12/08/20 13:21 CT head/brain wo con Routine CT head/brain wo con CLINICAL HISTORY: 80 years-old Male with To reeval 2.4cm hypodensity seen on CT on admissio. Acutely altered mental status. TECHNIQUE: Multiple axial CT images of the head were obtained without contrast. A dose lowering technique was utilized adhering to the principles of ALARA. CT DOSE: 1400.53 mGy.cm COMPARISON: None. FINDINGS: No acute intracranial hemorrhage, midline shift, intracranial mass, hydrocephalu s, territorial ischemia or abnormal extra-axial collection. Age-related involutional changes. White matter hypodensities suggestive of chronic microvascular ischemic disease. The previously questioned and hypodensity of the right frontal lobe is not definitively seen on today's study. Cavum septum pellucidum and vergae. Coarse calcifications of the falx cerebri. The calvarium is intact. Large skin defect of the right face and right temporal scalp redemonstrated. The paranasal sinuses, mastoid air cells, and middle ear cavities are clear. IMPRESSION: 1. Motion degraded exam without acute intracranial abnormality identified. 2. No acute or subacute territorial infarct. 3. Age-related involutional changes with chronic microvascular ischemic disease. 4. Large skin defect of the right face and right temporal scalp. ACT 112: Negative or not required by law. The above report was generated using voice recognition software. It may contain grammatical, syntax or spelling errors. Electronically signed by: Judd Garcia M.D. 12/08/2020 2:16 PM Dictated: 12/08/20 1412Transcribed: 12/08/20 1412 MODIFIED BARIUM SWALLOW CLINICAL HISTORY: r/o aspiration; + s/s aspiration at bedside COMPARISON STUDY: None. FLUOROSCOPY TIME: 0.8 minutes. TECHNIQUE: A modified barium swallow was performed in conjunction with Speech Pathology. The patient ingested varying consistencies of barium containing material. Video fluoroscopy was performed. FINDINGS: No tracheal aspiration was identified with thin liquids, nectar thick liquids or pudding consistency. Epiglottic inversion was normal. Laryngeal elevation was normal. IMPRESSION: 1. No tracheal aspiration identified. 2. Full recommendations by speech pathology to follow. ACT 112: Negative or not required by law. Electronically signed by: Otilio Douglas M.D. 12/08/2020 3:08 PM Dictated: 12/08/20 1505Transcribed: 12/08/[address] OF THE HEAD WITHOUT CONTRAST CLINICAL HISTORY: Altered mental status. COMPARISON STUDY: Head CT December 31, 2010. CT DOSE: 1200.54 mGy.cm TECHNIQUE: Helical axial images of the head were obtained without IV contrast. Automated exposure control was utilized for the study. A dose lowering technique was utilized adhering to the principles of ALARA. FINDINGS: This exam is mildly compromised by motion artifact. No acute intracranial hemorrhage, midline shift or mass effect is present. Extensive white matter hypodensity is similar to prior exam and favors small vessel disease. Ventricular dilatation is unchanged and due to atrophy. Basal cisterns are patent. There are no extra axial collections. There is an equivocal 2.4 cm hypodensity within the right frontal lobe on axial image 19 of . A large skin defect of the right face and right temporal scalp is noted. There is no fracture. Nasogastric tube is partially imaged. Moderate ethmoid sinus mucosal thickening is noted. There are postoperative findings within the sinuses. IMPRESSION: 1. No acute intracranial hemorrhage or mass effect. 2. 2.4 cm hypodensity within the right frontal lobe. This is likely artifactual however an acute infarct could appear similar. 3. Large skin defect of the right face and right temporal scalp. ACT 112: Negative or not required by law. Electronically signed by: Otilio Douglas M.D. 12/06/2020 5:09 PM Dictated: 12/06/201653Transcribed: 12/06/201653 ABDOMEN AND PELVIS CT WITHOUT CONTRAST CT DOSE: 1333.41 mGy.cm HISTORY: Acute hematemesis vomiting and bloated TECHNIQUE: Multiaxial CT images of the abdomen and pelvis were performed without contrast. A dose lowering technique was utilized adhering to the principles of ALARA. COMPARISON STUDY: None. FINDINGS: Study is limited secondary to patient positioning and lack of contrast. Mild cardiomegaly. Coronary artery calcifications. Partially imaged pacer leads. Trace pleural effusions with bibasilar groundglass and consolidative opacities. No pneumatosis or pneumoperitoneum. The unenhanced spleen, moderately atrophic pancreas and adrenal glands are unremarkable. Cholecystectomy. Mild marginal nodularity of the liver. Indeterminate 1.4 cm slightly hyper attenuating lesion of the hepatic dome on image 9 series 2. 3 mm calcification of the left kidney. Renal vascular calcifications are noted bilaterally. No hydronephrosis. Griffith catheter is noted within a decompressed urinary bladder. Air within the bladder lumen is likely secondary to instrumentation. Atherosclerosis of the aorta without aneurysm. No adenopathy. An enteric tube is present with distal tip terminating in the gastric body. Mild wall thickening of the distal esophagus. No bowel obstruction. Mild wall thickening of the rectum with moderate rectal fecal retention. The majority of the large bowel is decompressed. Normal appendix. Tiny fat filled periumbilical hernia. Unremarkable soft tissues. There is no acute fracture. Demineralized appearance of the bones. Degenerative changes of the spine, pelvis and hips. IMPRESSION: 1. No bowel obstruction. Normal appendix. 2. Marginal nodularity of the liver suggestive of cirrhosis. There is an indeterminate 1.4 cm slightly hyperattenuating lesion of the hepatic dome. This could be further characterized with a CT or MRI liver protocol. 3. 3 mm left renal calcification. No hydronephrosis. 4. Mild rectal wall thickening. Correlate with patient's symptoms to exclude a mild nonspecific proctitis. 5. Trace pleural effusions with bibasilar groundglass and consolidative opacities suspicious for an infectious or inflammatory pneumonitis. ACT 112: Negative or not required by law. The above report was generated using voice recognition software. It may contain grammatical, syntax or spelling errors. Electronically signed by: Judd Garcia M.D. 12/06/2020 5:14 PM Dictated: 12/06/201658Transcribed: 12/06/201658 SINGLE VIEW CHEST CLINICAL HISTORY: Dyspnea. FINDINGS: An AP, portable, upright chest radiograph is compared to study dated 01/21/2011. The examination is mildly degraded by portable technique and patient rotation. A 2-lead cardiac pacemaker is unchanged in position. The heart is enlarged. The pulmonary vasculature is noncongested. Atelectasis is noted at the lung bases. No airspace consolidation or large pleural effusion is identified. No pneumothorax is seen. The skeletal structures are osteopenic. The bony thorax is grossly intact. IMPRESSION: 1. Cardiomegaly and cardiac pacemaker. There is no radiographic evidence of congestive failure. 2. No airspace consolidation or large pleural effusion is identified. ACT 112: Negative or not required by law. Electronically signed by: Bear Bella M.D. 12/06/2020 2:21 PM Dictated: 12/06/201419Transcribed: 12/06/201419 Hospital Course (1) Altered mental status: (2) Acute metabolic encephalopathy: (3) Aspiration into airway: (4) Vomiting: (5) Elevated lactic acid level: (6) Sepsis: Based on history provided by ER physician with report of vomiting episodes during dermatological procedure, onset of altered mental status afterwards; patient likely aspirated into the airway. Patient met SIRS criteria with leukocytosis, tachypnea, elevated lactate, initial hypotension, acute kidney injury. Hence, severe sepsis likely secondary to aspiration into the airway. Chest x-ray did not show any obvious opacities.However CT abdomen pelvis does show trace pleural effusion with bibasilar groundglass and consolidative opacities. Patient altered mental status is likely acute metabolic encephalopathy likely to due to sepsis +/- anesthetic meds from procedure. CT head did not show any acute intracranial hemorrhage or mass-effect but reported equivocal 2.4 cm hypodensity within the right frontal lobe. No prior to compare. Got 30 cc/kg IV fluids in ER. Elevated lactate on admission, improved Leukocytosis resolved Was initially on zosyn and vanc Blood culture 1 of 4 growing staph. Likely contaminant. Antibiotics deescalated to Augmentin. Will complete antibiotics today CT head on admission reported a 2.4cm hypodensity (no prior CT to compare). Radiologist recommended repeat CT scan which did not show any acute or subacute infarcts. Patient's altered mental status, resolved. Patient is back to baseline mental status. Initially he did not do very well with dysphagia screen. Had SPUN PASTE MACHINE OPERATOR eval with video study which did not show any tracheal aspiration. Tolerating diet well. EKG on admission did show T wave inversions in inferolateral leads. Review of past EKG from 2014 confirmed that this is not new. Troponin trend was negative. Old Echo from 2008 reviewed on EPIC Echo done this admission shows moderate concentric LVH, apical wall motion abnormality, no regional wall motion abnormalities detected, EF of 60 to 65% [facility] Driver Education [employer] Instructor Dr Gia Macdonald recommended evaluation by plastic surgery to evaluate flap at this facial surgical site that was not completed due to aspiration event. Patient had surgery (Right Facial Flap Closure(Right) ) yesterday 12/11/20 Doing very well post op Discussed with Dr Miranda. Ok to resume home xarelto Follow up with Dr Miranda about discussing wound management with personnel at his care facility prior to discharge Continue home amlodipine, lisinopril, simvastatin, tamsulosin, finasteride. Monitor BP BP has been poorly controlled. Lisinopril was increased to 10 mg. Monitor Normocytic anemia-Hemoglobin was 9.9 on admission and dropped to the 7s has been stable since. Drop likely due to IV fluid resuscitation. Patient is DNR per POLST. Patient's POA Michelle [phone] (7) Acute renal failure superimposed on chronic kidney disease: Creatinine is 1.31 (back to baseline of 1.4] Avoid nephrotoxins Electrolyte abnormalities from yesterday being repleted. Monitor. (8) Diabetes mellitus: Pharmacy on board for glycemic management Pt was been on Lantus 15 units only. His home dose insulin is 58 units Will decrease basal insulin to 25 units, will need to titrate insulin if needed Continue monitor your blood sugar (9) DVT prophylaxis: Xarelto Total Time Total Time Spent Total Time Spent (In Minutes): 35 minutes Discharge Plan Discharge Items Patient Disposition: Transfer Detention Fac Reason For Visit: ALTERED MENTAL STATUS Discharge Diagnosis: (1) Altered mental status: (2) Acute metabolic encephalopathy: (3) Aspiration into airway: (4) Vomiting: (5) Elevated lactic acid level: (6) Sepsis: (7) Right Facial Flap Closure( Condition on Discharge: Fair Activity: Resume your previous activity Non-emergency contact: Primary Care Provider Call non-emergency contact if: you have any medication questions Follow-up/Referrals: PCP,NO [Primary Care Provider] - Diet: Carb Consistent or DM2 Addtl Attending Provider Instructions: Follow up with your primary care provider within 1 week Follow up with plastic surgery dr. Ronny Miranda. Please call Dr. Miranda at [phone] to discuss wound management with the nurse supervise at the facility once transfering Continue wound care as per Dr. Miranda recommendation Sutures will need to be removed around Dec 21- Continue monitor blood sugar and your provider will adjust insulin if needed since you required less insulin during the hospital course Continue monitor your blood pressure Continue physical and occupational therapy Continue Fall and aspiration precaution Check CBC in 5-7 days to monitor your hemoglobin Pending Studies at Discharge: No Stand-Alone Forms: My [facility] Skilled Items Patient informed of condition?: Yes DNR: Yes Discharge Level of Care: Skilled Communicable Disease: No Discharge Prognosis: Stable Lines: None Urinary Catheter: No Medications and DC Order Prescriptions: New lisinopril 10 mg Tablet 10 mg PO QAM 30 Days Qty: 30 RF: 0 Continued methenamine hippurate 1 gram Tablet 1 g PO BID RF: 0 tamsulosin 0.4 mg Capsule 0.4 mg PO BID RF: 0 loratadine 10 mg Tablet 10 mg PO DAILY RF: 0 mirtazapine 7.5 mg Tablet 7.5 mg HS RF: 0 Xarelto 15 mg Tablet 15 mg PO PM RF: 0 amlodipine 10 mg tablet 10 mg PO DAILY RF: 0 aspirin 81 mg Tablet,Chewable 81 mg PO DAILY RF: 0 finasteride 5 mg tablet 5 mg PO DAILY RF: 0 polyethylene glycol 3350 [ClearLax] 17 gram/dose Powder 17 g PO Q OTHER DAY RF: 0 omeprazole 40 mg capsule,delayed release(DR/EC) 40 mg PO BID RF: 0 docusate sodium [Colace] 100 mg Capsule 200 mg PO BID RF: 0 gabapentin 100 mg capsule 100 mg PO TID RF: 0 acetaminophen 325 mg Tablet 650 mg PO Q6 MDD 3g PRN (Reason: Pain) RF: 0 simvastatin 20 mg tablet 20 mg PO HS RF: 0 cholecalciferol (vitamin D3) [Vitamin D3] 25 mcg (1,000 unit) Tablet 50 mcg PO DAILY RF: 0 sennosides [Senokot] 8.6 mg Tablet 17.2 mg PO BID RF: 0 Changed Basaglar KwikPen U-100 Insulin 100 unit/mL (3 mL) insulin pen 25 unit SUBCUT HS Qty: 0 RF: 0 Discontinued lisinopril 5 mg Tablet 5 mg PO DAILY RF: 0 Discharge Orders: Discharge Order (Routine); Ordered 12/13/20 Ordered By: Gary Villanueva/Other Patient Handouts: A1C, Managing Type 2 Diabetes Admission Data Admit Date/Time: 12/06/20 18:08 Attending Provider: Gary Yost Admit Provider: Khalida Hardwick I. Primary Care Provider: PCP,NO Other Providers: Khalida Hardwick I. ; Steph Celaya ; Ronny Miranda Other Interventions: Discharge Summary Assessment (RN) Last Done: 12/13/20 15:54
[2020-12-13] MEDS: RIVAROXABAN 15 MG TAB PO SCH (15:23)
--- NOTE | 2020-12-19 22:10 | Operative Report ---
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 This patient had a basal cell ca taken off his right cheek which required a large rotational flap from the temporal area to allow closure. Dr Macdonald the dermatologic surgeon was the provider who removed the lesion and developed the flap. While raising this flap the patient aspirated and the case was terminated. As a result he was transfer to [facility] ED for evaluation and admission. I was consulted to complete the rotation flap and suture it into place once he was medically stable. Procedure: Once cleared for surgery, general anesthesia was achieved, the eyes were protected by the anesthesia dept criteria. A time out was take for patient ID, antibiotics, equipment and position verification once all agreed the procedure began. Local anesthesia was given around the flap site using Marcaine with a vasoconstrictor ( 1.8 ml per site x 3 ). Once a surgical level of anesthesia was obtained and the local anesthesia was given time for the blocks the surgery was started. I turned my attention to the upper aspect of the flap. I raised the flap and irrigated the flap, the flap was very healthy with excellent blood supply. Using sharp and blunt dissection I undermined the flap to get a more relaxed rotation and closure. I now was able to fit the flap into the most ideal anatomic position, appropriate trimming to allow the best soft tissue margins was accomplished. The repair of the complex rotational flap from the temporal area superior to the lateral corner of the right eye and over the mid line of the cheek was stated by placing a few anchoring sutures with 4-0 Vicryl--these sutures aligned the flap into a very nice cosmetic position. Once the stabilization sutures were placed I now used a 5-0/ 6-0 nylon suture and sutured the flap into place. Before the final superior sutures were placed I placed a 1/4 [place] drain from the most inferior aspect of the flap to the temporal area--it was secured with a 5-0 suture. Now using a 3-0 Vicryl a few bolster sutures were placed superior to decrease the space of the upper area of the flap which will need to heal by secondary intention healing and wound care protocol. At this time I irrigated the flap, the drain was working well, the flap was well perfused and pink with excellent blood supply. The flap was very secure. Bleeding was minimal. At this time I cleaned area, dressed the exposed temporal fascia and placed a pressure dressing over the site My plan for the temporal area will be to allow it to heal by secondary intention, using standard wound management protocol. I suctioned the throat. All instrument and sponge count was correct. the patient was allowed to awake from the anesthesia. Once full awake the anesthesia tube was removed and the patient was taken to the recovery room with all vital sign stable. The patient tolerated the surgery very well. I will follow the patient in my office, Rx and instructions will be given upon discharge to the nursing staff at his care facility.. 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 Any exceptions are noted below.
== END 2020-12-13 16:40 | DRG 853 ==
LOC: ED 13:56 → 2S 18:08 → SUATTDRO 18:08 → 2S 20:35 → 2W 12-12 18:24